=== PATIENT | female | born 1960 | race Caucasian/White ===

== ENCOUNTER 2021-10-23 10:40 | Inpatient (IN) | payer BC, OTHER, SELFPAY ==
[2021-10-23] VITALS (22 sets, daily range): BP systolic 130–154; BP diastolic 61–84; PULSE 74–86; RESP 18–222; TEMP 36.2–36.6; O2SAT 96–100; BMI 29.5
--- NOTE | ~2021-10-23 | XR_ITS ---
XR foot RT min 3V 10/26/2021 16:48 Indication: Medial foot pain Procedure: 4 views right foot Comparison: No prior studies for comparison. Findings: There is anatomic alignment. Normal mineralization. Lisfranc joint intact. No fracture, sub luxation or dislocation. There are small degenerative calcaneal enthesophytes. There is mild osteoart hritis of the midfoot. Impression: 1: Mild osteoarthritis of the midfoot. Reviewed, dictated and finalized at location A. Impression: 1: Mild osteoarthritis of the midfoot.
--- NOTE | ~2021-10-23 | MR_ITS ---
EXAMINATION: MR foot RT wo con DATE: 10/27/2021 12:35 INDICATION: Uncontrolled diabetes presenting with right foot pain TECHNIQUE: Magnetic resonance imaging (MRI) of the right fore/mid foot was performed without intraven ous contrast. Sequences included sagittal T1-weighted FSE, sagittal fluid sensitive FSE STIR, coronal PD-weighted FS FSE, coronal T1-weighted FSE, axial PD-weighted FS FSE, and axial PD-weighted FSE. COMPARISON: Radiographs dated 10/26/2021 FINDINGS: Bone alignment is normal. Juxta articular erosion with thin sclerotic margins at the medial head of t he first metatarsal with typical location and appearance for gout. Marrow signal is otherwise normal with no fracture, osteomyelitis or other pathologic marrow replacing process. Minimal to mild osteoar thritis at the tarsal metatarsal and first metatarsophalangeal joints. No joint effusions. Nonfocal s oft tissue edema throughout the mid and forefoot in the subcutaneous fat in the fascial planes surrou nding the musculature. No abscess or other abnormal loculated fluid collections. Intrinsic musculatur e of the foot is unremarkable. The visualized portion of the flexor and extensor tendons are normal. Lisfranc ligament complex along with the collateral ligament complex at the metatarsophalangeal and i nterphalangeal joints are normal. IMPRESSION: 1. Nonspecific soft tissue edema in the right mid and forefoot. No osteomyelitis or other acute osseo us abnormality. 2. Erosion with thin corticated margins at the medial head of the first metatarsal with classic locat ion appearance for gout. 3. Minimal to mild polyarticular osteoarthritis at the first metatarsophalangeal and multiple tarsal metatarsal joints. Reviewed, dictated and finalized at location B. IMPRESSION: 1. Nonspecific soft tissue edema in the right mid and forefoot. No osteomyeliti s or other acute osseous abnormality. 2. Erosion with thin corticated margins at the medial head of the first metatar ariela with classic location appearance for gout. 3. Minimal to mild polyarticular osteoarthritis at the first metatarsophalangea l and multiple tarsal metatarsal joints.
--- NOTE | ~2021-10-23 | NM_ITS ---
EXAMINATION: NM pulmonary perfusion DATE: 10/25/2021 13:10 INDICATION: Shortness of breath. TECHNIQUE: 5.02 mCi Tc-99m MAA was administered intravenously for perfusion images. Scintigraphic im ages of the chest were obtained. COMPARISON: Chest CT 10/24/2021, chest single view 10/23/2021 FINDINGS: Perfusion images show small defects in the lower lobes. There is a large defect in anterior segment l eft upper lobe. There is a large defect in superior segment left lower lobe. There is a moderate-size d defect in the posterobasal segment left lower lobe. IMPRESSION: 1. Pulmonary embolism present (high probability). Reviewed, dictated and finalized at location A.
--- NOTE | ~2021-10-23 | CT_ITS ---
EXAMINATION: CT brain wo con DATE: 10/23/2021 12:20 INDICATION: Dizziness TECHNIQUE: Computed tomography (CT) of the head was performed without intravenous contrast. The dose- length product was 605.33 mGy-cm. Automated exposure control and iterative reconstruction technique w ere employed. COMPARISON: None FINDINGS: Brain parenchymal volume is normal for age. There are scattered mild periventricular and malcolm bcortical white matter changes, most likely related to small vessel ischemic disease (microangiopathy ). No acute intracranial hemorrhage, mass or mass effect. No ventriculomegaly or midline shift. Basil ar cisterns are patent. There is mucosal thickening of the maxillary and ethmoid sinuses. Mastoids ar e pneumatized. IMPRESSION: 1. No acute intracranial abnormality. 2: Moderate sinus disease. Reviewed, dictated and finalized at location A.
--- NOTE | ~2021-10-23 | CT_ITS ---
EXAMINATION: CT abdomen pelvis wo con DATE: 10/23/2021 14:47 INDICATION: lower abd pain TECHNIQUE: Computed tomography (CT) of the abdomen and pelvis was performed without intravenous contr ast. Automated exposure control and iterative reconstruction technique were employed. The dose-length product was 417.78 mGy-cm. COMPARISON: None FINDINGS: Lower thorax: Unremarkable Liver: Normal. Biliary/Gallbladder: Cholelithiasis. No bile duct dilation. Pancreas: No mass or duct dilation. Spleen: Normal. Adrenals:No mass. Kidneys: No mass, stone, or hydronephrosis. Moderate bilateral perinephric stranding. GI tract: No small or large bowel dilation. Appendix not visualized. Mesentery/Peritoneum: No ascites, mass, or free air. Retroperitoneum: No mass. Pelvis: Pelvic organs are within normal limits. Soft Tissues: Soft tissues and body wall unremarkable. Bones: No acute osseous finding. IMPRESSION: No acute abdominopelvic process detected. Reviewed, dictated and finalized at location K.
--- NOTE | ~2021-10-23 | US_ITS ---
EXAMINATION: US venous doppler [facility] DATE: 10/26/2021 12:38 INDICATION: Bilateral pulmonary emboli TECHNIQUE: Grayscale ultrasound images without and with compression and Doppler ultrasound images of the bilateral lower extremity veins were obtained. COMPARISON: None. FINDINGS: The visualized portions of right common femoral vein, profunda (deep) femoral vein, femoral vein, pop liteal vein, posterior tibial veins, peroneal veins, gastrocnemius vein, lesser saphenous vein and gr eater saphenous vein outflow are patent. The visualized portions of left common femoral vein, profunda femoral vein, femoral vein, popliteal v ein, posterior tibial veins, peroneal veins, gastrocnemius vein, lesser saphenous vein and greater sa phenous vein outflow are patent. IMPRESSION: 1. No deep venous thrombosis in either lower limb. Reviewed, dictated and finalized at location B.
--- NOTE | ~2021-10-23 | XR_ITS ---
EXAMINATION: XR chest 1V portable DATE: 10/23/2021 12:32 INDICATION: Cough. Weakness. TECHNIQUE: A single frontal view of the chest was obtained. COMPARISON: None. FINDINGS: The chest demonstrates clear lungs without pneumonia, pleural effusion, or pneumothorax. Th e heart size is normal. IMPRESSION: 1. No acute cardiopulmonary disease. Reviewed, dictated and finalized at location A.
--- NOTE | ~2021-10-23 | CT_ITS ---
EXAMINATION: CT chest high resolution wo co DATE: 10/24/2021 14:41 INDICATION: Cough TECHNIQUE: Computed tomography (CT) of the chest, including high-resolution chest CT images was perfo rmed without intravenous contrast. Automated exposure control and iterative reconstruction technique were employed. The dose-length product was 165.78 mGy-cm. COMPARISON: None. FINDINGS: CHEST: Thoracic aorta: Mild calcifications, no dilation. Lung parenchyma and airways: Very subtle mosaic attenuation, otherwise clear. Thoracic inlet, axillae and chest wall: No thyroid or soft tissue mass. No axillary lymphadenopathy. Mediastinum: No mass or lymphadenopathy. Heart and pericardium: Normal heart size. No pericardial effusion. Coronary artery calcifications: Absent. Pleura: No effusion or mass. Thoracic bones: No acute osseous finding in the chest. IMPRESSION: Very mild/early mosaic attenuation, which can be seen with asthma, bronchiolitis obliterans, hypersen sitivity pneumonitis, and chronic thromboembolic disease. . Reviewed, dictated and finalized at location K. IMPRESSION: Very mild/early mosaic attenuation, which can be seen with asthma, bronchioliti s obliterans, hypersensitivity pneumonitis, and chronic thromboembolic disease. .
--- NOTE | 2021-10-23 10:58 | ECG_ITS ---
Measurements Intervals [place] Rate: 76 P: 50 W[place]: 143 QRS: 23 QRSD: 86 T: 50 QT: 384 QTc: 434 Interpretive Statements SINUS RHYTHM NORMAL ECG Electronically Signed On 10-23-2021 12:40:22 CDT by Derrick Bellamy D.O.
[2021-10-23 11:56] LABS: Basophils Absolute Auto 0.1 K/mm3 (0.0-0.1); Basophils Percent Auto 0.4 % (0.2-1.2); Eosinophils Percent Auto 0.1 % (0-4.4); Hematocrit 37.1 % (37.0-47.0); Hemoglobin 12.2 g/dL (12.0-15.0); Immature Granulocyte Absolute 0.05 K/mm3 (0.00-0.031); Immature Granulocyte Percent A 0.4 % (0-0.5); Lymphocytes Absolute Auto 0.74 K/mm3 (0.9-3.2); Lymphocytes Percent Auto 5.5 % (18.3-44.2); Mean Corpuscular HGB Conc 32.9 g/dl (32-36); Mean Corpuscular Hemoglobin 30.5 pg (26-34); Mean Corpuscular Volume 92.8 fl (80-100); Mean Platelet Volume 10.1 fl (7.4-10.4); Monocytes Absolute Auto 1.2 K/mm3 (0.1-0.6); Monocytes Percent Auto 8.7 % (2.6-8.5); Neutrophils Absolute Auto 11.5 K/mm3 (1.3-6.7); Neutrophils Percent Auto 84.9 % (45.5-73.1); Platelet Count Result 370 k/mm3 (150-375); Red Cell Distribution Width 12.7 % (11.5-14.5); White Blood Count 13.5 K/mm3 (4.5-10.0)
[2021-10-23] MEDS: SODIUM CHLORIDE 0.9% IV 1,000 ML 999 ML IV CONT ×2 (12:11→13:10)
[2021-10-23 12:38] LABS: Alanine Aminotransferase 48 U/L (6-35); Albumin Level 4.1 g/dL (3.5-5.1); Alkaline Phosphatase 234 U/L (38-126); Anion Gap 11 mmol/L (8-16); Aspartate Amino Transferase 56 U/L (14-36); Bilirubin,Total 0.6 mg/dL (0.2-1.3); Blood Urea Nitrogen 34 mg/dL (7-17); Calcium 8.9 mg/dL (8.4-10.2); Carbon Dioxide 25 mmol/L (22-30); Chloride 96 mmol/L (98-107); Estimated CRCL calculation 29 ml/min; Estimated Glomerular Filt Rate 31; Glucose 456 mg/dL (65-110); Potassium 4.5 mmol/L (3.4-5.0); Sodium 132 mmol/L (137-145)
[2021-10-23 13:33] LABS: Glucose Point of Care 367 mg/dl (65-105)
[2021-10-23 13:54] LABS: Appearance Urine Slightly Cloudy (Clear); Bilirubin Urine Negative (Negative); Blood Urine 1+ (Negative); Color Urine Yellow (Yellow); Glucose Urine UA 3+ mg/dL (Negative); Ketones Urine Negative (Negative); Leukocyte Esterase Ur 2+ LEU/UL (Negative); Nitrate Urine Positive (Negative); Protein Urine 2+ mg/dL (Negative); Urobilinogen Urine 0.2 mg/dL (<2.0); pH Urine 5.5 (5.0-9.0)
[2021-10-23 13:57] LABS: Bacteria Urine Trace /hpf; Mucus Urine Rare /lpf; Squamous Epithelial Cell Urine Occasional /hpf (Few); WBC Clumps Urine Present /HPF; WBC Urine >75 /hpf
[2021-10-23 14:00] LABS: Add Urine Microscopic? YES
--- NOTE | 2021-10-23 14:37 | PC.NURSE ---
blood glucose was 369 at 1436
[2021-10-23 14:39] LABS: Glucose Point of Care 369 mg/dl (65-105)
[2021-10-23 14:48] LABS: Lactic Acid Reflex 1.1 mmol/L (0.7-2.0)
--- NOTE | 2021-10-23 15:02 | ED.GENADULT ---
HPI - General Adult General Chief complaint: Weakness Stated complaint: weakness Time Seen by Provider: 10/23/21 12:01 Source: RN notes reviewed History of Present Illness HPI narrative: Patient presents emergency department from home for weakness. Patient states she has been having generalized weakness over the past 2 months states that she feels very fatigued and sleepy. She states that she has had no unilateral numbness or weakness she denies any vision changes she denies any difficulty speaking she denies any fevers or chills chest pain shortness of breath abdominal pain nausea vomiting or any other symptoms. Patient states she does have a history of diabetes mellitus and has an insulin pump but does not check her sugars regularly at home as her machine has not been working Related Data Allergies Allergy/AdvReac Type Severity Reaction Status Date / Time No Known Allergies Allergy Unverified 06/28/14 08:42 Review of Systems Review of Systems: Gen.: Denies fevers or chills Eyes: Denies eye pain or visual change ENT: Denies congestion Respiratory: Denies shortness of breath or cough CV: Denies chest pain or palpitations GI: Denies abdominal pain nausea, emesis or diarrhea Musculoskeletal: Denies back pain or muscle pain Neuro: Reports weakness Skin: Denies rash Endocrine: Reports diabetes mellitus Except as documented, all other systems reviewed and negative [facility] Past Medical History Medical History (Updated 10/23/21 @ 15:05 by Vernon Iyer DO) Diabetes mellitus Social History Social History (Updated 10/23/21 @ 15:03 by Vernon Iyer DO) Smoking status: Never smoker Exam Narrative: APPEARANCE: No acute distress, nontoxic, resting in bed HEENT: Normocephalic, atraumatic, OMM, EYES: PERRL, EOMI NECK: Supple, nontender, full range of motion without pain, no meningismus RESPIRATORY: No respiratory distress, clear to auscultation bilaterally with no rhonchi wheezing or rales CARDIOVASCULAR: RRR s murmur ABDOMINAL: Soft, nontender, nondistended MUSCULOSKELETAL: Moves all extremities. No clubbing, cyanosis or edema. NEURO: A and O ?3, following commands, speech normal, no facial droop, muscle strength 5 out of 5 bilateral upper and lower extremities SKIN:: Warm, dry. Normal Color PSYCHIATRIC: Normal affect/mood Course Course Emergency Course: Discussed with JENNIFER Orantes for Dr. Franco agrees with admission Discussed with patient and family results of workup and diagnosis. Discussed need for admission. Patient and family understand and agree to current treatment plan Vital Signs Vital signs: Vital Signs Temperature 97.1 F L 10/23/21 10:46 Pulse Rate 82 10/23/21 10:46 Respiratory Rate 20 10/23/21 10:46 Blood Pressure 130/61 10/23/21 10:46 Pulse Oximetry 97 10/23/21 10:46 Temperature 97.1 F L 10/23/21 10:46 Pulse Rate 84 10/23/21 14:32 Respiratory Rate 222 H 10/23/21 14:32 Blood Pressure 145/84 H 10/23/21 14:32 Pulse Oximetry 99 10/23/21 14:32 Medical Decision Making Vital Signs Vital Signs: Vital Signs Temperature 97.1 F L 10/23/21 10:46 Pulse Rate 82 10/23/21 10:46 Respiratory Rate 20 10/23/21 10:46 Blood Pressure 130/61 10/23/21 10:46 Pulse Oximetry 97 10/23/21 10:46 Temperature 97.1 F L 10/23/21 10:46 Pulse Rate 84 10/23/21 14:32 Respiratory Rate 222 H 10/23/21 14:32 Blood Pressure 145/84 H 10/23/21 14:32 Pulse Oximetry 99 10/23/21 14:32 Lab Data Result diagrams: 10/23/21 11:49 10/23/21 11:49 Labs: Lab Results 10/23/21 10/23/21 10/23/21 Range/Units 11:49 11:49 13:30 WBC 13.5 H (4.5-10.0) K/mm3 RBC 4.00 L (4.2-5.4) M/mm3 Hgb 12.2 (12.0-15.0) g/dL Hct 37.1 (37.0-47.0) % MCV 92.8 (80-100) fl MCH 30.5 (26-34) pg MCHC 32.9 (32-36) g/dl RDW 12.7 (11.5-14.5) % Plt Count 370 (150-375) k/mm3 MPV 10.1 (7.4-10.4) fl Immature Gran % (Au
[2021-10-23 16:55] LABS: Glucose Point of Care 236 mg/dl (65-105)
--- NOTE | 2021-10-23 17:16 | ADMGEN ---
This patient, Bebe Belle, was admitted to Medical Room 342-01. Patient/family oriented to hospital policies and general routines including ID bracelet, bed and alarms, visiting hours, pain management, procedures, bathroom and other care routines, personal items, smoking policy, room service/diet, and visiting hours. Information on how to activate the Rapid Response Team has been discussed. Patient/Family are encouraged to report perceived risks to care and to ask questions if they do not understand what they are told or what they should do.
[2021-10-23] MEDS: SODIUM CHLORIDE 0.9% IV 1,000 ML 125 ML IV CONT (18:27)
--- NOTE | 2021-10-23 19:30 | PM.IMHP ---
H&P: HPI History of Present Illness Date/Time: 10/23/21 19:30 Chief Complaint: Weakness. Narrative: This is a pleasant 61-year-old female with insulin-dependent diabetes, hypertension, dyslipidemia, and gout who presented to the emergency department from home for evaluation of weakness. She is typically pretty active and she is able to work a full-time job in addition to a part-time job as well as partake in golfing as often as possible. The last 2 months however she has become fatigued with everyday activities, is short of breath at times when she typically would not be short of breath, and she has been sleeping more than normal. She was seen by her primary physician at the [facility] about a month ago at which time she had lab work done. She was told that she had microscopic protein in her urine and she had a renal ultrasound as well however she has not her and anything regarding that. Vital signs on arrival today were stable. Pertinent labs include a white blood cell count of 132, chloride 96, BUN 34, creatinine 1.70, glucose 456, AST 56, ALT 48, alkaline phosphatase 234. Urinalysis was also abnormal and concerning for UTI. With further questioning she does admit that her appetite has not been great and that she definitely does not drink enough water. She admits that her diabetes is not well controlled and that she frequently forgets to give herself mealtime insulin, recent hemoglobin A1c was around 10%. She believes she has some component of chronic kidney disease however does not know her baseline creatinine or GFR. She has noticed foamy urine with dysuria several days ago but that has since improved. She has frequent headaches upon waking and she is somnolent throughout the day, easily falling asleep when sitting down. She denies fever, chills, sweats, paroxysmal nocturnal dyspnea, heavy snoring, exertional chest pain, nausea, vomiting, diarrhea, focal weakness, paresthesias, dysarthria, dysphagia, and recent cold and flu symptoms Review of Systems Review of Systems: Twelve systems were reviewed. No cold or flu symptoms. No sick contacts. No blurry vision, polydipsia, or polyuria. She does have diabetic retinopathy but is not required any intervention. Endorses neuropathy in her feet and on occasion hands. No open wounds. Except as documented, all other systems were reviewed and are negative. [facility] Past Medical History Medical History (Updated 10/24/21 @ 00:09 by Rolanda Tamez PA-C) Chronic kidney disease Dyslipidemia Gastroesophageal reflux disease Gout Hypertension Insulin dependent diabetes mellitus With retinopathy, nephropathy, and neuropathy. Surgical History Surgical History (Updated 10/24/21 @ 00:05 by Rolanda Tamez PA-C) No history of previous surgery Family History Family History (Updated 10/24/21 @ 00:05 by Rolanda Tamez PA-C) Mother Breast cancer Alzheimer's disease Father Diabetes mellitus Grandparent Acute myocardial infarction Social History Social History (Updated 10/24/21 @ 00:06 by Rolanda Tamez PA-C) Social History: Surrogate decision maker: Jennifer Zepeda, significant other. Code status: Full code. Smoking status: Never smoker Alcohol intake: current Drinks per week: 1 (Sparingly) Substance use: never Living arrangements: with family Spiritual care concerns: Yes Meds Home Medications and Allergies Home Medications Medication Instructions Recorded Confirmed Type ascorbic acid (vitamin C) 1,000 mg PO DAILY 10/23/21 10/23/21 History aspirin [Baby Aspirin] 81 mg PO DAILY 10/23/21 10/23/21 History carvedilol 25 mg PO BID 10/23/21 10/23/21 History cholecalciferol (vitamin D3) 50 mcg PO DAILY 10/23/21 10/23/21 History cranberry extract 500 mg PO DAILY 10/23/21 10/23/21 History ezetimibe 5 mg PO DAILY 10/23/21 10/23/21 History losartan-hydrochlorothiazide 25 - 100 mg PO DAILY 10/23/21 10/23/21 History mecobalamin (vitamin B12) 2,500 mcg PO DAILY 10/23/21 10/23/21 H
[2021-10-23 19:57] LABS: Glucose Point of Care 237 mg/dl (65-105)
[2021-10-23] MEDS: ACETAMINOPHEN 325 MG TABLET 650 MG PO (21:51)
--- NOTE | 2021-10-24 00:12 | ECHO_ITS ---
Patient Info Name: Bebe Belle Age: 61 years : 1960 Gender: Female Ht: 61 in Wt: 156 lbs BSA: 1.77 m2 HR: 77 bpm BP: 129 / 53 mmHg Heart Rhythm: Sinus Rhythm Technical Quality: Fair Exam Date: 10/24/2021 4:46 PM Exam Location: [facility] Patient Status: Outpatient Admit Date: 10/23/2021 Staff Ordering Physician: Rolanda Tamez PA-C Perfect [employer] Machine Operator: Luz Alejandra RDCS Attending Provider: Duke Franco MD Referring Physician: Joi HUTCHINSON; Exam Type: CA echo doppler color flow Study Info Indications - Decreased exercise tolerance, HTN, DM Complete two-dimensional, color flow and Doppler transthoracic echocardiogram is performed. Summary 1. Complete two-dimensional, color flow and Doppler transthoracic echocardiogram is performed. 2. Left ventricular chamber dimension is normal. 3. Left ventricular systolic function is normal, estimated at 60-65%. 4. There is mildly increased left ventricular wall thickness. 5. The left ventricular diastolic function is grade I diastolic dysfunction. 6. There is mild mitral valve regurgitation. 7. There is mild tricuspid valve regurgitation. 8. Moderate pulmonary hypertension, estimated pulmonary arterial systolic pressure is 46 mmHg. 9. There is mild pulmonic regurgitation. Left Ventricle Left ventricular chamber dimension is normal. Left ventricular systolic function is normal, estimated at 60-65%. There is mildly increased left ventricular wall thickness. The left ventricular diastolic function is grade I diastolic dysfunction. Right Ventricle Right ventricular chamber dimension is normal. Right ventricular systolic function is normal. Left Atria Left atrial chamber dimension is normal. Right Atria Right atrial chamber dimension is normal. Atrial Septum Intact interatrial septum visualized by color flow imaging. Aortic Valve The aortic valve is trileaflet. There is no aortic valve sclerosis. There is no aortic valve stenosis. There is trace aortic valve regurgitation. Pulmonic Valve The pulmonic valve is normal. There is no pulmonic valve stenosis. There is mild pulmonic regurgitation. Mitral Valve The mitral valve has thickened leaflets. There is no mitral valve stenosis. There is mild mitral valve regurgitation. Tricuspid Valve The tricuspid valve leaflets are normal. There is no significant tricuspid valve stenosis. There is mild tricuspid valve regurgitation. Moderate pulmonary hypertension, estimated pulmonary arterial systolic pressure is 46 mmHg. Pericardium/Pleural The pericardium appears normal. There is no pericardial effusion. Inferior Vena Cava Normal inferior vena cava with <50% collapse upon inspiration consistent with elevated right atrial pressure, 10 mmHg. Aorta The aortic root size at the sinus of Valsalva is normal. The prox ascending aorta size is normal. Left Ventricular Outflow Tract Name Value Normal LVOT 2D LVOT Diameter 2.0 cm LVOT Doppler LVOT Peak Gradient 3 mmHg LVOT Mean Gradient 2 mmHg
[2021-10-24 01:17] VITALS: PULSE 86
[2021-10-24] MEDS: carvediloL 25 MG TABLET PO ×3 (01:17→21:14)
[2021-10-24] MEDS: SODIUM CHLORIDE 0.9% IV 1,000 ML 75 ML IV CONT (01:20)
[2021-10-24 06:00] VITALS: BP 129/53; PULSE 77; RESP 18; TEMP 36.6; O2SAT 99
[2021-10-24 06:39] LABS: Alanine Aminotransferase 44 U/L (6-35); Albumin Level 3.2 g/dL (3.5-5.1); Alkaline Phosphatase 189 U/L (38-126); Anion Gap 4 mmol/L (8-16); Aspartate Amino Transferase 48 U/L (14-36); Bilirubin,Total 0.3 mg/dL (0.2-1.3); Blood Urea Nitrogen 22 mg/dL (7-17); Calcium 7.9 mg/dL (8.4-10.2); Carbon Dioxide 25 mmol/L (22-30); Chloride 108 mmol/L (98-107); Estimated CRCL calculation 49 ml/min; Estimated Glomerular Filt Rate 57; Glucose 201 mg/dL (65-110); Potassium 3.9 mmol/L (3.4-5.0); Sodium 137 mmol/L (137-145)
[2021-10-24 06:41] LABS: Basophils Percent Auto 0.4 % (0.2-1.2); Eosinophils Absolute Auto 0.1 K/mm3 (0-0.3); Eosinophils Percent Auto 1.1 % (0-4.4); Hematocrit 31.2 % (37.0-47.0); Hemoglobin 10.1 g/dL (12.0-15.0); Immature Granulocyte Absolute 0.05 K/mm3 (0.00-0.031); Immature Granulocyte Percent A 0.5 % (0-0.5); Lymphocytes Absolute Auto 0.93 K/mm3 (0.9-3.2); Lymphocytes Percent Auto 8.9 % (18.3-44.2); Mean Corpuscular HGB Conc 32.4 g/dl (32-36); Mean Corpuscular Hemoglobin 30.1 pg (26-34); Mean Corpuscular Volume 93.1 fl (80-100); Mean Platelet Volume 10.3 fl (7.4-10.4); Monocytes Absolute Auto 1.1 K/mm3 (0.1-0.6); Monocytes Percent Auto 10.4 % (2.6-8.5); Neutrophils Absolute Auto 8.2 K/mm3 (1.3-6.7); Neutrophils Percent Auto 78.7 % (45.5-73.1); Platelet Count Result 311 k/mm3 (150-375); Red Blood Count 3.35 M/mm3 (4.2-5.4); Red Cell Distribution Width 12.9 % (11.5-14.5); White Blood Count 10.4 K/mm3 (4.5-10.0)
[2021-10-24 07:40] LABS: Glucose Point of Care 191 mg/dl (65-105)
[2021-10-24] MEDS: LOSARTAN POTASSIUM 100 MG TABLET PO (08:01)
[2021-10-24] MEDS: CHOLECALCIFEROL 1,000 UNITS TABLET 2000 UNITS PO (08:01)
[2021-10-24] MEDS: ASPIRIN 81 MG CHEWABLE TABLET PO (08:02)
[2021-10-24] MEDS: ASCORBIC ACID 500 MG TABLET 1000 MG PO (08:02)
[2021-10-24] MEDS: EZETIMIBE 5 MG TABLET PO (08:02)
[2021-10-24] MEDS: hydroCHLOROthiazide 25 MG TABLET PO (08:02)
--- NOTE | 2021-10-24 10:13 | PM.IMPN ---
Progress Note: A&P Assessment and Plan (1) Insulin dependent diabetes mellitus: Status: Acute Assessment and Plan: Patient may continue to use her insulin pump basal rate. Initiate sliding scale insulin, Accu-Cheks, and hypoglycemic protocol. (2) Hyperglycemia: Code(s): R73.9 - Hyperglycemia, unspecified Status: Acute Assessment and Plan: Diabetes is poorly controlled with a recent hemoglobin A1c of around 10%. Discussed the importance of getting her diabetes under control, met with hospice educator within the last 6 months. Glucose has improved with hydration and rapid acting insulin. (3) Chronic kidney disease: Code(s): N18.9 - Chronic kidney disease, unspecified Status: Acute Assessment and Plan: He patient reports some component of chronic kidney disease, unknown baseline. She does appear a bit dry and is being hydrated overnight. Records requested from the [facility] for review. (4) Urinary tract infection: Code(s): N39.0 - Urinary tract infection, site not specified Status: Acute Assessment and Plan: Continue ceftriaxone, pending urine culture. (5) Elevated LFTs: Code(s): R79.89 - Other specified abnormal findings of blood chemistry Status: Acute Assessment and Plan: Previously informed of mild LFT elevation. Abdominal exam is benign. No inpatient workup indicated. (6) Decreased exercise tolerance: Code(s): R68.89 - Other general symptoms and signs Status: Acute Assessment and Plan: Decreased exercise tolerance over the past couple of months. Given her diabetes and gender, will obtain echocardiogram to rule out wall motion abnormalities. Apnea link for screening tonight as well given daytime somnolence which revealed AHI of 3.6 which is within normal limit She might need stress test to further evaluate her exertion of dyspnea Also check TSH Discussed diabetes control (7) Hypertension: Code(s): I10 - Essential (primary) hypertension Status: Acute Assessment and Plan: Blood pressures were reviewed and they are reasonable. Continue antihypertensives and monitor daily. Subjective Date/time seen: 10/24/21 10:13 Interval history: HPI: This is a pleasant 61-year-old female with insulin-dependent diabetes, hypertension, dyslipidemia, and gout who presented to the emergency department from home for evaluation of weakness. She is typically pretty active and she is able to work a full-time job in addition to a part-time job as well as partake in golfing as often as possible. The last 2 months however she has become fatigued with everyday activities, is short of breath at times when she typically would not be short of breath, and she has been sleeping more than normal. She was seen by her primary physician at the [facility] about a month ago at which time she had lab work done. She was told that she had microscopic protein in her urine and she had a renal ultrasound as well however she has not her and anything regarding that. Vital signs on arrival today were stable. Pertinent labs include a white blood cell count of 132, chloride 96, BUN 34, creatinine 1.70, glucose 456, AST 56, ALT 48, alkaline phosphatase 234. Urinalysis was also abnormal and concerning for UTI. With further questioning she does admit that her appetite has not been great and that she definitely does not drink enough water. She admits that her diabetes is not well controlled and that she frequently forgets to give herself mealtime insulin, recent hemoglobin A1c was around 10%. She believes she has some component of chronic kidney disease however does not know her baseline creatinine or GFR. She has noticed foamy urine with dysuria several days ago but that has since improved. She has frequent headaches upon waking and she is somnolent throughout the day, easily falling asleep when sitting down. She denies fever, chills, sweats, paroxysmal noc
[2021-10-24 11:35] LABS: Glucose Point of Care 279 mg/dl (65-105)
[2021-10-24] MEDS: INSULIN ASPART (*BKC) 100 UNITS/ML SUB-Q (11:45)
[2021-10-24 11:47] VITALS: BMI 31.5
[2021-10-24 13:22] LABS: NT Pro B Type Natriuretic Pept 152 pg/mL (5-100)
--- NOTE | 2021-10-24 13:27 | PCNSR ---
On 10/24/21, the student, David Martinez, provided care and completed [facility] documentation on this patient. I have reviewed the student's documentation and agree with the findings.
[2021-10-24 14:00] VITALS: BP 169/77; PULSE 75; RESP 16; TEMP 37.2; O2SAT 99
[2021-10-24] MEDS: ALBUTEROL SULFATE (*SP) AEROSOL 1 PUFF 2 PUFF INHALATION ×2 (15:36→20:44)
[2021-10-24 15:47] VITALS: PULSE 75; O2SAT 99
[2021-10-24 15:59] LABS: SARS-CoV-2 RNA PCR Negative
[2021-10-24 16:38] LABS: Glucose Point of Care 200 mg/dl (65-105)
[2021-10-24 20:12] LABS: D Dimer 1.16 ug/mL (<0.48)
[2021-10-24 21:00] VITALS: BP 162/74; PULSE 83; RESP 18; TEMP 36.1; O2SAT 97
[2021-10-24 21:14] VITALS: PULSE 89
[2021-10-24 21:15] LABS: Glucose Point of Care 239 mg/dl (65-105)
[2021-10-25] VITALS (7 sets, daily range): BP systolic 160–194; BP diastolic 72–80; PULSE 70–77; RESP 16; TEMP 36.2–36.6; O2SAT 96–99
[2021-10-25] MEDS: ALBUTEROL SULFATE (*SP) AEROSOL 1 PUFF 2 PUFF INHALATION ×4 (02:49→19:50)
[2021-10-25 06:17] LABS: Basophils Absolute Auto 0.1 K/mm3 (0.0-0.1); Basophils Percent Auto 0.5 % (0.2-1.2); Eosinophils Absolute Auto 0.2 K/mm3 (0-0.3); Hemoglobin 10.4 g/dL (12.0-15.0); Immature Granulocyte Absolute 0.03 K/mm3 (0.00-0.031); Immature Granulocyte Percent A 0.3 % (0-0.5); Lymphocytes Absolute Auto 1.51 K/mm3 (0.9-3.2); Lymphocytes Percent Auto 16.4 % (18.3-44.2); Mean Corpuscular HGB Conc 32.5 g/dl (32-36); Mean Corpuscular Hemoglobin 30.1 pg (26-34); Mean Corpuscular Volume 92.5 fl (80-100); Mean Platelet Volume 10.3 fl (7.4-10.4); Monocytes Absolute Auto 0.9 K/mm3 (0.1-0.6); Monocytes Percent Auto 10.1 % (2.6-8.5); Neutrophils Absolute Auto 6.5 K/mm3 (1.3-6.7); Neutrophils Percent Auto 70.7 % (45.5-73.1); Platelet Count Result 361 k/mm3 (150-375); Red Blood Count 3.46 M/mm3 (4.2-5.4); Red Cell Distribution Width 12.9 % (11.5-14.5); White Blood Count 9.2 K/mm3 (4.5-10.0)
[2021-10-25 06:28] LABS: Alanine Aminotransferase 70 U/L (6-35); Albumin Level 3.3 g/dL (3.5-5.1); Alkaline Phosphatase 249 U/L (38-126); Anion Gap 5 mmol/L (8-16); Aspartate Amino Transferase 62 U/L (14-36); Bilirubin,Total 0.3 mg/dL (0.2-1.3); Blood Urea Nitrogen 19 mg/dL (7-17); CRP 6.2 mg/dL (<1.0); Calcium 8.6 mg/dL (8.4-10.2); Carbon Dioxide 29 mmol/L (22-30); Chloride 106 mmol/L (98-107); Estimated CRCL calculation 54 ml/min; Estimated Glomerular Filt Rate > 60; Glucose 95 mg/dL (65-110); Magnesium 1.8 mg/dL (1.6-2.3); Potassium 3.8 mmol/L (3.4-5.0); Sodium 140 mmol/L (137-145)
[2021-10-25 07:33] LABS: Glucose Point of Care 107 mg/dl (65-105)
[2021-10-25] MEDS: ASCORBIC ACID 500 MG TABLET 1000 MG PO (08:15)
[2021-10-25] MEDS: ACETAMINOPHEN 325 MG TABLET 650 MG PO (08:15)
[2021-10-25] MEDS: LOSARTAN POTASSIUM 100 MG TABLET PO (08:16)
[2021-10-25] MEDS: CHOLECALCIFEROL 1,000 UNITS TABLET 2000 UNITS PO (08:16)
[2021-10-25] MEDS: hydroCHLOROthiazide 25 MG TABLET PO (08:16)
[2021-10-25] MEDS: ASPIRIN 81 MG CHEWABLE TABLET PO (08:16)
[2021-10-25] MEDS: EZETIMIBE 5 MG TABLET PO (08:16)
[2021-10-25] MEDS: carvediloL 25 MG TABLET PO ×2 (08:16→20:44)
[2021-10-25 10:00] LABS: Glucose Point of Care 206 mg/dl (65-105)
[2021-10-25 11:19] LABS: Glucose Point of Care 181 mg/dl (65-105)
[2021-10-25] MEDS: cefTRIAXone 2 GM in SODIUM CHLORIDE 0.9% IV 100 ML 200 ML IVPB (13:18)
--- NOTE | 2021-10-25 13:47 | PM.CNCAR ---
Assessment and Plan Assessment and plan (1) Bacteremia: Code(s): R78.81 - Bacteremia Status: Acute Assessment and Plan: ? Etiology. It is reasonable to pursue a transesophageal echocardiogram. Unlikely source but will keep NPO after midnight for a transesophageal echocardiogram tomorrow. I did talk to her about the risks, benefits alternatives and she verbalized understanding and is agreeable (2) Urinary tract infection: Code(s): N39.0 - Urinary tract infection, site not specified Status: Acute Assessment and Plan: Currently on ceftriaxone (3) Decreased exercise tolerance: Code(s): R68.89 - Other general symptoms and signs Status: Acute Assessment and Plan: Possibly due to underlying infection but cannot completely exclude ischemia (4) Hypertension: Code(s): I10 - Essential (primary) hypertension Status: Acute Assessment and Plan: At reasonable control. Continue current meds (5) Insulin dependent diabetes mellitus: Status: Acute Assessment and Plan: Per hospitalist (6) Atypical chest pain: Code(s): R07.89 - Other chest pain Status: Acute Assessment and Plan: If she does not improve with antibiotics, it is reasonable to pursue a stress test on her. This could be performed as an outpatient as Lexiscan or an exercise perfusion study History of Present Illness History of Present Illness Consult date/time: 10/25/21 13:47 Requesting physician: Dr. Tellez Reason For Visit: UTI, Acute Renal Insufficiency, Hyperglycemia, Wea Narrative: Reason consultation: Bacteremia, evaluate for CHRISTEL History: Patient is 61-year-old female who came to hospital because of progressively worsening weakness. She has been progressively more weak, short of breath, tired for the past month to maybe 2 months. The symptoms worsened to the point that she came the hospital. She is found to have bacteremia with Klebsiella pneumonia as well as a UTI, species pending. Cardiology consultation was requested for evaluation of possible transesophageal echocardiogram. Transthoracic echocardiogram was unremarkable. Patient does describe a couple episodes of chest pain recently that were is short-lived. She has not had any exertional chest pain. She does have shortness breath with mild activity such as walking to and from her car. No syncope but she does have some dizziness upon standing. No paroxysmal nocturnal dyspnea orthopnea. Minor swelling is noted which is not particularly new or different. No palpitations. She has no trouble swallowing and no bleeding issues Review of Systems Review of Systems: All systems reviewed & are unremarkable except as noted in HPI and below Constitutional: Constitutional: Denies difficulty sleeping Eyes: Eyes: Denies blurry vision ENT: Reports Normal hearing present Cardiovascular: Cardiovascular: Denies chest pain, Denies diaphoresis and Reports pedal edema Respiratory: Respiratory: Denies chest congestion and Denies cough Gastrointestinal: Gastrointestinal: Denies abdominal pain Genitourinary: Genitourinary: Denies hematuria Musculoskeletal: Musculoskeletal: Denies back pain Integumentary/Breasts: Skin/Breast: Denies breast pain Neurologic: Denies Abnormal speech present Psychiatric: Psychiatric: Denies confusion Endocrine: Endocrine: Reports fatigue Hematologic/Lymphatic: Hematologic/Lymphatic: Denies easy bleeding Allergic/Immunologic: Allergic/Immunologic: Denies GI upset with certain foods PMFSH Past Medical History Medical History Chronic kidney disease Dyslipidemia Gastroesophageal reflux disease Gout Hypertension Insulin dependent diabetes mellitus With retinopathy, nephropathy, and neuropathy. Surgical History Surgical History No history of previous surgery
--- NOTE | 2021-10-25 14:37 | PM.IMPN ---
Progress Note: A&P Assessment and Plan (1) Decreased exercise tolerance: Code(s): R68.89 - Other general symptoms and signs Status: Acute Assessment and Plan: Decreased exercise tolerance over the past couple of months. Apnea link for screening tonight as well given daytime somnolence which revealed AHI of 3.6 which is within normal limit She might need stress test to further evaluate her exertion of dyspnea. TSH within range. transthoracic echo shows EF60-65% moderate pHTN and Grade I diastolic dysfunction. VQ scan shows high probability of bilateral PE. HRCT chest w/ mosaic pattern. -Started enoxaparin BID -Bilateral venous duplex of lower extremities -Will need hypercoagulability workup outpatient and workup for cancer outpatient (2) Sepsis: Code(s): A41.9 - Sepsis, unspecified organism Status: Acute Assessment and Plan: UCX & 1/2 BCX w/ klebsiella. UCX sensitive to current ceftriaxone. TTE w/ no vegetations but needs CHRISTEL. -Repeat BCX x 2 -Cardiology consult for bacteremia for CHRISTEL -Will repeat cultures with AM labs -Ceftriaxone dose changed to 2g IV q12h for now (3) Bacteremia: Code(s): R78.81 - Bacteremia Status: Acute Assessment and Plan: Plans as noted above. (4) Pulmonary embolism: Code(s): I26.99 - Other pulmonary embolism without acute cor pulmonale Status: Acute Assessment and Plan: Enoxaparin BID started -Bilateral LE venous duplex ordered -As this is unprovoked will need hypercoagulability workup and cancer workup outpatient (5) Insulin dependent diabetes mellitus: Status: Acute Assessment and Plan: Patient may continue to use her insulin pump basal rate. Initiate sliding scale insulin, Accu-Cheks, and hypoglycemic protocol. (6) Hyperglycemia: Code(s): R73.9 - Hyperglycemia, unspecified Status: Acute Assessment and Plan: Diabetes is poorly controlled with a recent hemoglobin A1c of around 10%. Discussed the importance of getting her diabetes under control, met with purchasing/receiving within the last 6 months. Glucose has improved with hydration and rapid acting insulin. (7) Chronic kidney disease: Code(s): N18.9 - Chronic kidney disease, unspecified Status: Acute Assessment and Plan: He patient reports some component of chronic kidney disease, unknown baseline. She does appear a bit dry and is being hydrated overnight. Records requested from the [facility] for review. (8) Urinary tract infection: Code(s): N39.0 - Urinary tract infection, site not specified Status: Acute Assessment and Plan: Klebsiella senstive to ceftriaxone. Continue ceftriaxone. (9) Elevated LFTs: Code(s): R79.89 - Other specified abnormal findings of blood chemistry Status: Acute Assessment and Plan: Previously informed of mild LFT elevation. Abdominal exam is benign. No inpatient workup indicated. (10) Hypertension: Code(s): I10 - Essential (primary) hypertension Status: Acute Assessment and Plan: Blood pressures were reviewed and they are reasonable. Continue antihypertensives and monitor daily. Subjective Date/time seen: Date of Service 10/25/21 1200 Patient says she feels much better. Family at bedside with questions. Denies chest pain and shortness of breath. 1/2 blood cultures with klebsiella Review of Systems Cardiovascular: Cardiovascular: Denies chest pain Respiratory: Respiratory: Denies dyspnea Exam Narrative: GENERAL: NAD, cooperative HEENT: Normocephalic, atraumatic, anicteric, nares clear, oropharynx moist and clear NECK: Supple CV: Normal S1, S2, RRR, No MRG RESP: CTAB, Normal work of breathing. Abdomen: Soft, non-tender, non-distended, +BS EXTREMITIES: Warm and well perfused, no clubbing, cyanosis, or edema SKIN: warm, dry and intact. NEURO: CN 2-12 grossly intact. Objective
[2021-10-25] MEDS: ENOXAPARIN 80 MG/0.8 ML SYRINGE 75 MG SUB-Q (15:11)
[2021-10-25 16:39] LABS: Glucose Point of Care 135 mg/dl (65-105)
[2021-10-25] MEDS: hydrALAZINE 5 MG TABLET PO ×2 (20:44→20:50)
[2021-10-25 20:51] LABS: Glucose Point of Care 222 mg/dl (65-105)
[2021-10-26] VITALS (23 sets, daily range): BP systolic 134–205; BP diastolic 60–101; PULSE 63–85; RESP 16–20; TEMP 35.7–37.4; O2SAT 95–100
[2021-10-26] MEDS: ENOXAPARIN 80 MG/0.8 ML SYRINGE 75 MG SUB-Q ×2 (00:45→13:51)
[2021-10-26] MEDS: cefTRIAXone 2 GM in SODIUM CHLORIDE 0.9% IV 100 ML 200 ML IVPB ×2 (01:02→12:46)
[2021-10-26 06:20] LABS: Basophils Absolute Auto 0.1 K/mm3 (0.0-0.1); Basophils Percent Auto 0.7 % (0.2-1.2); Eosinophils Absolute Auto 0.2 K/mm3 (0-0.3); Hematocrit 33.2 % (37.0-47.0); Hemoglobin 10.9 g/dL (12.0-15.0); Immature Granulocyte Absolute 0.03 K/mm3 (0.00-0.031); Immature Granulocyte Percent A 0.3 % (0-0.5); Lymphocytes Absolute Auto 1.46 K/mm3 (0.9-3.2); Lymphocytes Percent Auto 16.2 % (18.3-44.2); Mean Corpuscular HGB Conc 32.8 g/dl (32-36); Mean Corpuscular Volume 91.5 fl (80-100); Mean Platelet Volume 10.4 fl (7.4-10.4); Monocytes Absolute Auto 0.8 K/mm3 (0.1-0.6); Monocytes Percent Auto 8.3 % (2.6-8.5); Neutrophils Absolute Auto 6.6 K/mm3 (1.3-6.7); Neutrophils Percent Auto 72.5 % (45.5-73.1); Platelet Count Result 431 k/mm3 (150-375); Red Blood Count 3.63 M/mm3 (4.2-5.4); Red Cell Distribution Width 12.6 % (11.5-14.5)
[2021-10-26 06:37] LABS: Anion Gap 7 mmol/L (8-16); Blood Urea Nitrogen 23 mg/dL (7-17); Calcium 9.5 mg/dL (8.4-10.2); Carbon Dioxide 29 mmol/L (22-30); Chloride 103 mmol/L (98-107); Estimated CRCL calculation 45 ml/min; Estimated Glomerular Filt Rate 51; Glucose 153 mg/dL (65-110); Potassium 3.7 mmol/L (3.4-5.0); Sodium 139 mmol/L (137-145)
[2021-10-26 07:43] LABS: Glucose Point of Care 144 mg/dl (65-105)
--- NOTE | 2021-10-26 08:10 | PM.IMPN ---
Progress Note: A&P Assessment and Plan (1) Decreased exercise tolerance: Code(s): R68.89 - Other general symptoms and signs Status: Acute Assessment and Plan: Decreased exercise tolerance over the past couple of months. Apnea link for screening tonight as well given daytime somnolence which revealed AHI of 3.6 which is within normal limit She might need stress test to further evaluate her exertion of dyspnea. TSH within range. transthoracic echo shows EF60-65% moderate pHTN and Grade I diastolic dysfunction. VQ scan shows high probability of bilateral PE. HRCT chest w/ mosaic pattern. No DVT in bilateral LE on duplex. -Started enoxaparin BID -Will start apixaban tomorrow -Will need hypercoagulability workup outpatient and workup for cancer outpatient (2) Sepsis: Code(s): A41.9 - Sepsis, unspecified organism Status: Acute Assessment and Plan: UCX & 1/2 BCX w/ klebsiella almost pansensitive except ampicillin. UCX sensitive to current ceftriaxone. TTE w/ no vegetations but needs CHRISTEL. 10/25 BCX with no growth. 10/26 BCX pending. -Planned for CHRISTEL today -Ceftriaxone dose changed to 2g IV q12h for now (3) Bacteremia: Code(s): R78.81 - Bacteremia Status: Acute Assessment and Plan: Plans as noted above. (4) Pulmonary embolism: Code(s): I26.99 - Other pulmonary embolism without acute cor pulmonale Status: Acute Assessment and Plan: Enoxaparin BID started. Bilateral venous duplex with no DVT. -As this is unprovoked will need hypercoagulability workup and cancer workup outpatient (5) Insulin dependent diabetes mellitus: Status: Acute Assessment and Plan: Patient may continue to use her insulin pump basal rate. Initiate sliding scale insulin, Accu-Cheks, and hypoglycemic protocol. (6) Hyperglycemia: Code(s): R73.9 - Hyperglycemia, unspecified Status: Acute Assessment and Plan: Diabetes is poorly controlled with a recent hemoglobin A1c of around 10%. Discussed the importance of getting her diabetes under control, met with conservation educator within the last 6 months. Glucose has improved with hydration and rapid acting insulin. (7) Chronic kidney disease: Code(s): N18.9 - Chronic kidney disease, unspecified Status: Acute Assessment and Plan: [facility] creatinine 1.1-1.5. At baseline. -Avoid nephrotoxic agents -Renally dose medications (8) Urinary tract infection: Code(s): N39.0 - Urinary tract infection, site not specified Status: Acute Assessment and Plan: Klebsiella sensitive to ceftriaxone. Continue ceftriaxone and will be complete today. -If TTE negative will discontinue ceftriaxone (9) Elevated LFTs: Code(s): R79.89 - Other specified abnormal findings of blood chemistry Status: Acute Assessment and Plan: Previously informed of mild LFT elevation. Abdominal exam is benign. No inpatient workup indicated. (10) Hypertension: Code(s): I10 - Essential (primary) hypertension Status: Acute Assessment and Plan: Hypertensive. Started hydralazine 5 mg QID yesterday without significant improvement. -Already on carvedilol 25 mg BID, Losartan 100 mg daily and hydrochlorothiazide 25 mg daily -Add amlodipine 10 mg daily -Amlodipine 5 mg x 1 now Subjective Date/time seen: Date of Service 10/26/21 08:10 Patient denies chest pain, palpitations, shortness of breath. Says she has had right foot pain for over the last year. She has had a prior diagnosis of plantar fasciitis. She says she had the pain yesterday morning until it resolved by around 11am. Describes the pain as feeling like someone is taking a hammer to the side of her foot near the arch. Denies pain on the plantar surface of her foot. Denies any recent fall or trauma. Says the pain improved with Tylenol yesterday. Re
[2021-10-26] MEDS: hydroCHLOROthiazide 25 MG TABLET PO (08:42)
[2021-10-26] MEDS: LOSARTAN POTASSIUM 100 MG TABLET PO (08:42)
[2021-10-26] MEDS: carvediloL 25 MG TABLET PO ×2 (08:43→19:56)
[2021-10-26] MEDS: ALBUTEROL SULFATE (*SP) AEROSOL 1 PUFF 2 PUFF INHALATION ×3 (08:49→20:11)
[2021-10-26] MEDS: ACETAMINOPHEN 325 MG TABLET 650 MG PO ×2 (08:49→19:55)
[2021-10-26] MEDS: SODIUM CHLORIDE 0.9% IV 500 ML 30 ML IV CONT (09:55)
--- NOTE | 2021-10-26 10:12 | WPDMODSED ---
Moderate Sedation Note-Pt Data Patient Data Diagnosis: Bacteremia Present Complaint: Bacteremia Procedure to be performed/Plan: Multiplanar transesophageal echocardiography with pulse wave and color-flow Doppler Agitated saline study Moderate sedation Allergies Allergy/AdvReac Type Severity Reaction Status Date / Time No Known Allergies Allergy Unverified 06/28/14 08:42 Home Medications Medication Instructions Recorded Confirmed Type ascorbic acid (vitamin C) 1,000 mg PO DAILY 10/23/21 10/23/21 History aspirin 81 mg chewable tablet 81 mg PO DAILY 10/23/21 10/23/21 History carvedilol 25 mg tablet 25 mg PO BID 10/23/21 10/23/21 History cholecalciferol (vitamin D3) 50 50 mcg PO DAILY 10/23/21 10/23/21 History mcg (2,000 unit) tablet cranberry extract 500 mg PO DAILY 10/23/21 10/23/21 History ezetimibe 5 mg PO DAILY 10/23/21 10/23/21 History losartan-hydrochlorothiazide 25 - 100 mg PO DAILY 10/23/21 10/23/21 History mecobalamin (vitamin B12) 5,000 2,500 mcg PO DAILY 10/23/21 10/23/21 History mcg disintegrating tablet sour lopez extract 1,000 mg 1,200 mg PO DAILY 10/23/21 10/23/21 History capsule (Tart Lopez Extract) Current Medications: Active Medications Acetaminophen (Acetaminophen 325 Mg Tablet) 650 mg PO Q6H PRN PRN Reason: Pain, Headache Last Admin: 10/26/21 08:49 Dose: 650 mg Albuterol (Albuterol Sulfate (*Sp) Aerosol 1 Puff) 2 puff INHALATION Q6HRT [facility] Last Admin: 10/26/21 08:49 Dose: 2 puff Ascorbic Acid (Ascorbic Acid 500 Mg Tablet) 1,000 mg PO DAILY [facility] Stop: 11/23/21 08:59 Last Admin: 10/26/21 07:48 Dose: Not Given Aspirin (Aspirin 81 Mg Chewable Tablet) 81 mg PO DAILY [facility] Last Admin: 10/26/21 07:48 Dose: Not Given Carvedilol (Carvedilol 25 Mg Tablet) 25 mg PO Q12HR [facility] Last Admin: 10/26/21 08:43 Dose: 25 mg Cyanocobalamin (Cyanocobalamin 1,000 Mcg Tablet) 2,000 mcg PO QAM [facility] Last Admin: 10/26/21 08:35 Dose: Not Given Cyanocobalamin (Cyanocobalamin 500 Mcg Tablet) 500 mcg PO QAM [facility] Last Admin: 10/26/21 08:35 Dose: Not Given Dextrose (Dextrose 50% 25 Gm/50 Ml Syringe) 12.5 gm IV PUSH PRN PRN; Protocol PRN Reason: Hypoglycemia Ezetimibe (Ezetimibe 5 Mg Tablet) 5 mg PO DAILY [facility] Stop: 11/23/21 08:59 Last Admin: 10/26/21 07:48 Dose: Not Given Enoxaparin Sodium (Enoxaparin 80 Mg/0.8 Ml Syringe) 75 mg SUB-Q Q12H [facility] Last Admin: 10/26/21 00:45 Dose: 75 mg Glucagon (Glucagon For Inj 1 Mg Vial) 1 mg IM PRN PRN; Protocol PRN Reason: Hypoglycemia Glucose (Glucose Oral Gel 15 Gm Of Glucse In 37.5 Gm Tube) 15 gm PO PRN PRN; Protocol PRN Reason: Hypoglycemia Hydralazine HCl (Hydralazine 5 Mg Tablet) 5 mg PO QID [facility] Last Admin: 10/26/21 07:48 Dose: Not Given Hydrochlorothiazide (Hydrochlorothiazide 25 Mg Tablet) 25 mg PO DAILY [facility] Stop: 11/23/21 08:59 Last Admin: 10/26/21 08:42 Dose: 25 mg Dextrose (Dextrose 5% 1,000 Ml) 1,000 mls @ 100 mls/hr IVPB PRN PRN; Protocol PRN Reason: Hypoglycemia Ceftriaxone Sodium 2 gm/ (Sodium Chloride) 100 mls @ 200 mls/hr IVPB Q12H [facility] Last Infusion: 10/26/21 01:43 Dose: Infused Sodium Chloride (Normal Saline Iv) 500 mls @ 30 mls/hr IV CONT .[id number] [facility] Insulin Aspart (Insulin Aspart (*Bkc) 100 Units/Ml) 3 - 6 units SUB-Q TIDWM [facility]; Protocol Last Admin: 10/26/21 07:47 Dose: Not Given Losartan Potassium (Losartan Potassium 100 Mg Tablet) 100 mg PO DAILY [facility] Stop: 11/23/21 08:59 Last Admin: 10/26/21 08:42 Dose: 100 mg Non-Formulary Medication (Cranberry Extract) 500 mg PO DAILY [facility] Stop: 11/23/21 08:59 Non-Formulary Medication (Sour Lopez Extract [Tart Lopez Extract]) 1,200 mg PO DAILY [facility] Stop: 11/23/21 08:59 Perflutren Lipid Microsphere (Perflutren Lipid Microspheres 1.5 Ml Vial Diluted To 10 Ml Total Volume) 0 ml IV PUSH ONCE PRN; Protocol PRN Reason: adequate visualization Vitamin D (Cholecalciferol 1,000 Units Tablet) 2,000 units PO DAILY [facility] Last Admin: 10/26/21 07:48 Dose:
[2021-10-26] MEDS: METOPROLOL TARTRATE INJ 5 MG/5 ML VIAL (10:30)
--- NOTE | 2021-10-26 10:31 | WPDTEECHO ---
[facility] TransEsophageal Echocardiogram Date of procedure: 10/26/21 Procedure Type: 1. Multiplanar transesophageal echocardiography with pulse wave and color-flow Doppler 2. Agitated saline study 3. Moderate sedation Diagnosis: Bacteremia Indications: Bacteremia Image Quality: Good Findings: Procedure: After discussing the risks, benefits alternatives of procedure patient gave a via verbal and written informed consent. Risks discussed included esophageal rupture perforation, , need for emergent surgery, bleeding, pain, infection, sore throat. After establishing continuous operations management trainee, pulse oxygenation and serial blood pressure assessments, time-out was taken and procedure was started. Procedure start time 10:20 a.m. Procedure stop time 10:26 a.m. Patient was monitored medications were provided by Pedrito Denise RN Complications: None Blood loss: None Sedation: 3 mg of Versed and 50 mcg of fentanyl given in divided dosages as well as Hurricaine spray to the hypopharynx x2 for topical anesthetic. Patient did become hypertensive and 5 mg of IV metoprolol were also given Findings: Normal left ventricular size and function ejection fraction of 65%. Normal right ventricular size and function. Tricuspid valve is normal without evidence of mass or thrombus or vegetation. Mild tricuspid regurgitation. Mitral valve was also normal with mild mitral regurgitation. Aortic valve is trileaflet and normal with trivial aortic insufficiency. Pulmonic valve is grossly normal. No significant pulmonic insufficiency. Atrial septum is intact with out agitated saline or color flow evidence of shunting. Left atrial appendage is normal without mass or thrombus. Pulse wave velocities are 70 centimeters/second. Aortic root is normal in size measuring 2.9 cm and there is minimal arthrosclerotic disease seen within the aorta itself. No pericardial effusion. Conclusions: 1. Normal left ventricular size and function with ejection fraction 65% 2. No evidence of bacterial endocarditis 3. Mild mitral regurgitation 4. Intact atrial septum with negative agitated saline study 5. Moderate sedation
[2021-10-26 12:45] LABS: Glucose Point of Care 76 mg/dl (65-105)
[2021-10-26] MEDS: hydrALAZINE 5 MG TABLET PO ×3 (12:46→19:56)
[2021-10-26 16:32] LABS: Glucose Point of Care 131 mg/dl (65-105)
[2021-10-26 19:28] LABS: Glucose Point of Care 94 mg/dl (65-105)
[2021-10-26] MEDS: amLODIPine BESYLATE 5 MG TABLET PO (21:53)
[2021-10-26] MEDS: DICLOFENAC SODIUM 1% 100 GM GEL (*BKC) 1 APPLIC TOPICAL (21:54)
[2021-10-26] MEDS: APIXABAN 5 MG TABLET 10 MG PO (21:54)
[2021-10-27] VITALS (10 sets, daily range): BP systolic 141–152; BP diastolic 62–78; PULSE 72–78; RESP 16–20; TEMP 35.8–36.4; O2SAT 96–97
[2021-10-27] MEDS: ACETAMINOPHEN 325 MG TABLET 650 MG PO ×2 (01:29→09:23)
[2021-10-27] MEDS: ALBUTEROL SULFATE (*SP) AEROSOL 1 PUFF 2 PUFF INHALATION ×3 (02:20→19:32)
[2021-10-27] MEDS: SODIUM CHLORIDE 0.9% IV 500 ML 30 ML IV CONT (05:17)
[2021-10-27 07:09] LABS: Hematocrit 32.4 % (37.0-47.0); Hemoglobin 10.4 g/dL (12.0-15.0)
[2021-10-27 07:22] LABS: Glucose Point of Care 134 mg/dl (65-105)
[2021-10-27 07:34] LABS: Anion Gap 7 mmol/L (8-16); Blood Urea Nitrogen 22 mg/dL (7-17); Calcium 8.3 mg/dL (8.4-10.2); Carbon Dioxide 28 mmol/L (22-30); Chloride 102 mmol/L (98-107); Estimated CRCL calculation 50 ml/min; Estimated Glomerular Filt Rate > 60; Glucose 163 mg/dL (65-110); Sodium 137 mmol/L (137-145)
[2021-10-27] MEDS: cefTRIAXone 2 GM in SODIUM CHLORIDE 0.9% IV 100 ML 200 ML IVPB (09:10)
[2021-10-27] MEDS: APIXABAN 5 MG TABLET 10 MG PO ×2 (09:11→20:25)
[2021-10-27] MEDS: ASCORBIC ACID 500 MG TABLET 1000 MG PO (09:11)
[2021-10-27] MEDS: amLODIPine BESYLATE 5 MG TABLET 10 MG PO (09:11)
[2021-10-27] MEDS: CYANOCOBALAMIN 500 MCG TABLET PO (09:12)
[2021-10-27] MEDS: ASPIRIN 81 MG CHEWABLE TABLET PO (09:12)
[2021-10-27] MEDS: carvediloL 25 MG TABLET PO ×2 (09:15→20:24)
[2021-10-27] MEDS: CHOLECALCIFEROL 1,000 UNITS TABLET 2000 UNITS PO (09:18)
[2021-10-27] MEDS: LOSARTAN POTASSIUM 100 MG TABLET PO (09:18)
[2021-10-27] MEDS: EZETIMIBE 5 MG TABLET PO (09:18)
[2021-10-27] MEDS: CYANOCOBALAMIN 1,000 MCG TABLET 2000 MCG PO (09:18)
[2021-10-27] MEDS: hydroCHLOROthiazide 25 MG TABLET PO (09:18)
[2021-10-27] MEDS: DICLOFENAC SODIUM 1% 100 GM GEL (*BKC) 1 APPLIC TOPICAL ×4 (09:20→20:26)
[2021-10-27 11:50] LABS: Glucose Point of Care 104 mg/dl (65-105)
[2021-10-27 12:36] LABS: CRP 4.5 mg/dL (<1.0)
[2021-10-27 12:57] LABS: Erythrocyte Sedimentation Rate 107 mm/hr (0-20)
--- NOTE | 2021-10-27 13:58 | PM.DS ---
DS: Admitting Diagnosis Discharge Date 10/27/21 Admitting Diagnosis Weakness, Urinary Tract Infection DS: Discharge Diagnosis Discharge Diagnosis (1) Decreased exercise tolerance: Code(s): R68.89 - Other general symptoms and signs Status: Acute Assessment and Plan: Decreased exercise tolerance over the past couple of months. Apnea link for screening tonight as well given daytime somnolence which revealed AHI of 3.6 which is within normal limit She might need stress test to further evaluate her exertion of dyspnea. TSH within range. transthoracic echo shows EF60-65% moderate pHTN and Grade I diastolic dysfunction. VQ scan shows high probability of bilateral PE. HRCT chest w/ mosaic pattern. No DVT in bilateral LE on duplex. -Started apixaban today -Will need hypercoagulability workup outpatient and workup for cancer outpatient (2) Sepsis: Code(s): A41.9 - Sepsis, unspecified organism Status: Acute Assessment and Plan: UCX & 1/2 BCX w/ klebsiella almost pansensitive except ampicillin. UCX sensitive to current ceftriaxone. 10/25 BCX with no growth. 10/26 BCX with no growth. CHRSITEL had no vegetations. -Will discharge with Ceftriaxone 2 g IV daily for a total of 7 days duration of treatment with end date of 11/01/21 -PICC line ordered to be placed -Will need follow up with PCP next week (3) Bacteremia: Code(s): R78.81 - Bacteremia Status: Acute Assessment and Plan: TTE w/ no indication of endocarditis. (4) Pulmonary embolism: Code(s): I26.99 - Other pulmonary embolism without acute cor pulmonale Status: Acute Assessment and Plan: Bilateral venous duplex with no DVT. -Apixaban started today and approved by insurance -As this is unprovoked will need hypercoagulability workup and cancer workup outpatient (5) Insulin dependent diabetes mellitus: Status: Acute Assessment and Plan: Patient may continue to use her insulin pump basal rate. Initiate sliding scale insulin, Accu-Cheks, and hypoglycemic protocol. (6) Hyperglycemia: Code(s): R73.9 - Hyperglycemia, unspecified Status: Acute Assessment and Plan: Diabetes is poorly controlled with a recent hemoglobin A1c of around 10%. Discussed the importance of getting her diabetes under control, met with public health educator within the last 6 months. Glucose has improved with hydration and rapid acting insulin. (7) Chronic kidney disease: Code(s): N18.9 - Chronic kidney disease, unspecified Status: Acute Assessment and Plan: [facility], baseline creatinine 1.1-1.5. At baseline. -Avoid nephrotoxic agents -Renally dose medications (8) Urinary tract infection: Code(s): N39.0 - Urinary tract infection, site not specified Status: Acute Assessment and Plan: Klebsiella sensitive to ceftriaxone. Continue ceftriaxone and will be complete today. -If TTE negative will discontinue ceftriaxone (9) Elevated LFTs: Code(s): R79.89 - Other specified abnormal findings of blood chemistry Status: Acute Assessment and Plan: Previously informed of mild LFT elevation. Abdominal exam is benign. No inpatient workup indicated. (10) Hypertension: Code(s): I10 - Essential (primary) hypertension Status: Acute Assessment and Plan: Hypertensive. Started hydralazine 5 mg QID yesterday without significant improvement. -Already on carvedilol 25 mg BID, Losartan 100 mg daily and hydrochlorothiazide 25 mg daily -Add amlodipine 10 mg daily -Amlodipine 5 mg x 1 now DS: Summary Time Spent with Patient Time attestation: Total time spent providing and/or coordinating discharge services: Exam Narrative: GENERAL: NAD, cooperative HEENT: Normocephalic, atraumatic, anicteric, nares clear, oropharynx moist and clear NECK: Supple CV: Normal S1, S2, RRR, No MRG RESP: CTAB, No
[2021-10-27] MEDS: LIDOCAINE HCL 1% LOCAL INJ 2 ML AMPUL 5 ML INFILTRATE (14:36)
--- NOTE | 2021-10-27 15:23 | PM.IMPN ---
Progress Note: A&P Assessment and Plan (1) Decreased exercise tolerance: Code(s): R68.89 - Other general symptoms and signs Status: Acute Assessment and Plan: Decreased exercise tolerance over the past couple of months. Apnea link for screening tonight as well given daytime somnolence which revealed AHI of 3.6 which is within normal limit She might need stress test to further evaluate her exertion of dyspnea. TSH within range. transthoracic echo shows EF60-65% moderate pHTN and Grade I diastolic dysfunction. VQ scan shows high probability of bilateral PE. HRCT chest w/ mosaic pattern. No DVT in bilateral LE on duplex. -Apixaban started today -Will need hypercoagulability workup outpatient and workup for cancer outpatient (2) Sepsis: Code(s): A41.9 - Sepsis, unspecified organism Status: Acute Assessment and Plan: UCX & 1/2 BCX w/ klebsiella almost pansensitive except ampicillin. UCX sensitive to current ceftriaxone. 10/25 BCX with no growth. 10/26 BCX with no growth and TTE with no sign of valve vegetations. -Ceftriaxone dose changed to 2g IV daily through 11/01/21 (3) Bacteremia: Code(s): R78.81 - Bacteremia Status: Acute Assessment and Plan: TTE negative. Will continue treatment with ceftriaxone 2g IV daily as per case mangement, insurance approval will take a minimum of 72 hours, so the patient must remain inpatient to get IV ceftriaxone. (4) Pulmonary embolism: Code(s): I26.99 - Other pulmonary embolism without acute cor pulmonale Status: Acute Assessment and Plan: Bilateral venous duplex with no DVT. -Apixaban -As this is unprovoked will need hypercoagulability workup and cancer workup outpatient. (5) Insulin dependent diabetes mellitus: Status: Acute Assessment and Plan: Patient may continue to use her insulin pump basal rate. Initiate sliding scale insulin, Accu-Cheks, and hypoglycemic protocol. (6) Hyperglycemia: Code(s): R73.9 - Hyperglycemia, unspecified Status: Acute Assessment and Plan: Diabetes is poorly controlled with a recent hemoglobin A1c of around 10%. Discussed the importance of getting her diabetes under control, met with hospice educator within the last 6 months. Glucose has improved with hydration and rapid acting insulin. (7) Chronic kidney disease: Code(s): N18.9 - Chronic kidney disease, unspecified Status: Acute Assessment and Plan: [facility] creatinine 1.1-1.5. At baseline. -Avoid nephrotoxic agents -Renally dose medications (8) Urinary tract infection: Code(s): N39.0 - Urinary tract infection, site not specified Status: Acute Assessment and Plan: Klebsiella sensitive to ceftriaxone. Continue ceftriaxone and will be complete today. -Urinary tract infection treatment has been completed. (9) Elevated LFTs: Code(s): R79.89 - Other specified abnormal findings of blood chemistry Status: Acute Assessment and Plan: Previously informed of mild LFT elevation. Abdominal exam is benign. No inpatient workup indicated. (10) Hypertension: Code(s): I10 - Essential (primary) hypertension Status: Acute Assessment and Plan: Hypertensive. Started hydralazine 5 mg QID yesterday without significant improvement. -Already on carvedilol 25 mg BID, Losartan 100 mg daily and hydrochlorothiazide 25 mg daily -Continue amlodipine 10 mg daily Subjective Date/time seen: 10/27/21 15:23 Patient says her foot pain has moved to the top of her foot and that the foot is now red and warm. She says she cannot even walk because the pain is so excruciating. Review of Systems Musculoskeletal: Musculoskeletal: Denies arthralgias, Denies joint swelling and Denies stiffness Exam Narrative: GENERAL: NAD, cooperative HEENT: Normocephalic, atraumatic, anicteric, nares c
[2021-10-27] MEDS: COLCHICINE 0.6 MG TABLET 1.2 MG PO (15:36)
[2021-10-27 16:29] LABS: Glucose Point of Care 264 mg/dl (65-105)
[2021-10-27] MEDS: COLCHICINE 0.6 MG TABLET PO (17:15)
[2021-10-27 20:10] LABS: Glucose Point of Care 269 mg/dl (65-105)
[2021-10-27] MEDS: SALINE LOCK FLUSH 10 ML IV PUSH (20:26)
[2021-10-28] VITALS (9 sets, daily range): BP systolic 130–158; BP diastolic 61–77; PULSE 70–82; RESP 16–18; TEMP 36.3–36.8; O2SAT 97–98
[2021-10-28] MEDS: ALBUTEROL SULFATE (*SP) AEROSOL 1 PUFF 2 PUFF INHALATION ×4 (02:55→19:21)
[2021-10-28] MEDS: SALINE LOCK FLUSH 10 ML IV PUSH ×3 (05:46→20:38)
[2021-10-28 07:49] LABS: Glucose Point of Care 142 mg/dl (65-105)
[2021-10-28] MEDS: cefTRIAXone 2 GM in SODIUM CHLORIDE 0.9% IV 100 ML 200 ML IVPB (08:33)
[2021-10-28] MEDS: amLODIPine BESYLATE 5 MG TABLET 10 MG PO (08:36)
[2021-10-28] MEDS: APIXABAN 5 MG TABLET 10 MG PO ×2 (08:36→20:38)
[2021-10-28] MEDS: ASPIRIN 81 MG CHEWABLE TABLET PO (08:36)
[2021-10-28] MEDS: ASCORBIC ACID 500 MG TABLET 1000 MG PO (08:37)
[2021-10-28] MEDS: CHOLECALCIFEROL 1,000 UNITS TABLET 2000 UNITS PO (08:37)
[2021-10-28] MEDS: hydroCHLOROthiazide 25 MG TABLET PO (08:38)
[2021-10-28] MEDS: CYANOCOBALAMIN 500 MCG TABLET PO (08:38)
[2021-10-28] MEDS: CYANOCOBALAMIN 1,000 MCG TABLET 2000 MCG PO (08:38)
[2021-10-28] MEDS: LOSARTAN POTASSIUM 100 MG TABLET PO (08:38)
[2021-10-28] MEDS: carvediloL 25 MG TABLET PO ×2 (08:39→20:38)
[2021-10-28] MEDS: EZETIMIBE 5 MG TABLET PO (08:39)
[2021-10-28] MEDS: DICLOFENAC SODIUM 1% 100 GM GEL (*BKC) 1 APPLIC TOPICAL ×4 (08:41→20:39)
[2021-10-28 12:08] LABS: Glucose Point of Care 210 mg/dl (65-105)
--- NOTE | 2021-10-28 15:58 | PM.IMPN ---
Progress Note: A&P Assessment and Plan (1) Decreased exercise tolerance: Code(s): R68.89 - Other general symptoms and signs Status: Acute Assessment and Plan: Decreased exercise tolerance over the past couple of months. Apnea link for screening tonight as well given daytime somnolence which revealed AHI of 3.6 which is within normal limit She might need stress test to further evaluate her exertion of dyspnea. TSH within range. transthoracic echo shows EF60-65% moderate pHTN and Grade I diastolic dysfunction. VQ scan shows high probability of bilateral PE. HRCT chest w/ mosaic pattern. No DVT in bilateral LE on duplex. -Apixaban daily -Will need hypercoagulability workup outpatient and workup for cancer outpatient (2) Sepsis: Code(s): A41.9 - Sepsis, unspecified organism Status: Acute Assessment and Plan: UCX & 1/2 BCX w/ klebsiella almost pansensitive except ampicillin. UCX sensitive to current ceftriaxone. 10/25 BCX with no growth. 10/26 BCX with no growth and TTE with no sign of valve vegetations. -Ceftriaxone dose changed to 2g IV daily through 11/01/21 (3) Bacteremia: Code(s): R78.81 - Bacteremia Status: Acute Assessment and Plan: TTE negative. Will continue treatment with ceftriaxone 2g IV daily as per case mangement, insurance approval will take a minimum of 72 hours, so the patient must remain inpatient to get IV ceftriaxone. (4) Pulmonary embolism: Code(s): I26.99 - Other pulmonary embolism without acute cor pulmonale Status: Acute Assessment and Plan: Bilateral venous duplex with no DVT. -Apixaban -As this is unprovoked will need hypercoagulability workup and cancer workup outpatient. (5) Insulin dependent diabetes mellitus: Status: Acute Assessment and Plan: Patient may continue to use her insulin pump basal rate. Initiate sliding scale insulin, Accu-Cheks, and hypoglycemic protocol. (6) Hyperglycemia: Code(s): R73.9 - Hyperglycemia, unspecified Status: Acute Assessment and Plan: Diabetes is poorly controlled with a recent hemoglobin A1c of around 10%. Discussed the importance of getting her diabetes under control, met with prosthodontist/educator within the last 6 months. Glucose has improved with hydration and rapid acting insulin. (7) Chronic kidney disease: Code(s): N18.9 - Chronic kidney disease, unspecified Status: Acute Assessment and Plan: [facility], baseline creatinine 1.1-1.5. At baseline. -Avoid nephrotoxic agents -Renally dose medications (8) Urinary tract infection: Code(s): N39.0 - Urinary tract infection, site not specified Status: Acute Assessment and Plan: Klebsiella sensitive to ceftriaxone. Continue ceftriaxone and will be complete today. -Urinary tract infection treatment has been completed. (9) Elevated LFTs: Code(s): R79.89 - Other specified abnormal findings of blood chemistry Status: Acute Assessment and Plan: Previously informed of mild LFT elevation. Abdominal exam is benign. No inpatient workup indicated. (10) Hypertension: Code(s): I10 - Essential (primary) hypertension Status: Acute Assessment and Plan: Hypertensive. Started hydralazine 5 mg QID yesterday without significant improvement. -Already on carvedilol 25 mg BID, Losartan 100 mg daily and hydrochlorothiazide 25 mg daily -Continue amlodipine 10 mg daily Subjective Date/time seen: 10/28/21 0915 Patient says her throat was scratchy yesterday and says she feels like something is stuck in it. Attributes this to the [facility]. Says her foot pain is much better. Review of Systems Musculoskeletal: Musculoskeletal: Denies arthralgias and Denies joint swelling Exam Narrative: GENERAL: NAD, cooperative HEENT: Normocephalic, atraumatic, anicteric, nares clear, oropharynx moist and freddie
[2021-10-28 16:41] LABS: Glucose Point of Care 143 mg/dl (65-105)
[2021-10-28 21:45] LABS: Glucose Point of Care 174 mg/dl (65-105)
[2021-10-29] VITALS (9 sets, daily range): BP systolic 131–149; BP diastolic 66–69; PULSE 69–81; RESP 15–18; TEMP 35.8–36.8; O2SAT 93–99
[2021-10-29] MEDS: ALBUTEROL SULFATE (*SP) AEROSOL 1 PUFF 2 PUFF INHALATION ×4 (02:55→19:37)
[2021-10-29] MEDS: SALINE LOCK FLUSH 10 ML IV PUSH ×3 (05:57→20:43)
[2021-10-29 07:44] LABS: Glucose Point of Care 136 mg/dl (65-105)
--- NOTE | 2021-10-29 08:16 | PM.IMPN ---
Progress Note: A&P Assessment and Plan (1) Decreased exercise tolerance: Code(s): R68.89 - Other general symptoms and signs Status: Acute Assessment and Plan: Decreased exercise tolerance over the past couple of months. Apnea link for screening tonight as well given daytime somnolence which revealed AHI of 3.6 which is within normal limit She might need stress test to further evaluate her exertion of dyspnea. TSH within range. transthoracic echo shows EF60-65% moderate pHTN and Grade I diastolic dysfunction. VQ scan shows high probability of bilateral PE. HRCT chest w/ mosaic pattern. No DVT in bilateral LE on duplex. -Apixaban daily -Will need hypercoagulability workup outpatient and workup for cancer outpatient (2) Sepsis: Code(s): A41.9 - Sepsis, unspecified organism Status: Acute Assessment and Plan: UCX & 1/2 BCX w/ klebsiella almost pansensitive except ampicillin. UCX sensitive to current ceftriaxone. 10/25 BCX with no growth. 10/26 BCX with no growth and TTE with no sign of valve vegetations. -Ceftriaxone dose changed to 2g IV daily through 11/01/21 (3) Bacteremia: Code(s): R78.81 - Bacteremia Status: Acute Assessment and Plan: TTE negative. Will continue treatment with ceftriaxone 2g IV daily as per case mangement, insurance approval will take a minimum of 72 hours, so the patient must remain inpatient to get IV ceftriaxone. (4) Pulmonary embolism: Code(s): I26.99 - Other pulmonary embolism without acute cor pulmonale Status: Acute Assessment and Plan: Bilateral venous duplex with no DVT. -Apixaban -As this is unprovoked will need hypercoagulability workup and cancer workup outpatient. (5) Insulin dependent diabetes mellitus: Status: Acute Assessment and Plan: Patient may continue to use her insulin pump basal rate. Initiate sliding scale insulin, Accu-Cheks, and hypoglycemic protocol. (6) Hyperglycemia: Code(s): R73.9 - Hyperglycemia, unspecified Status: Acute Assessment and Plan: Diabetes is poorly controlled with a recent hemoglobin A1c of around 10%. Discussed the importance of getting her diabetes under control, met with employment agency manager within the last 6 months. Glucose has improved with hydration and rapid acting insulin. (7) Chronic kidney disease: Code(s): N18.9 - Chronic kidney disease, unspecified Status: Acute Assessment and Plan: [facility], baseline creatinine 1.1-1.5. At baseline. -Avoid nephrotoxic agents -Renally dose medications (8) Urinary tract infection: Code(s): N39.0 - Urinary tract infection, site not specified Status: Acute Assessment and Plan: Klebsiella sensitive to ceftriaxone. Continue ceftriaxone and will be complete today. -Urinary tract infection treatment has been completed. (9) Elevated LFTs: Code(s): R79.89 - Other specified abnormal findings of blood chemistry Status: Acute Assessment and Plan: Previously informed of mild LFT elevation. Abdominal exam is benign. No inpatient workup indicated. (10) Hypertension: Code(s): I10 - Essential (primary) hypertension Status: Acute Assessment and Plan: Hypertensive. Started hydralazine 5 mg QID yesterday without significant improvement. -Already on carvedilol 25 mg BID, Losartan 100 mg daily and hydrochlorothiazide 25 mg daily -Continue amlodipine 10 mg daily Subjective Date/time seen: 10/29/21 08:16 No complaints this morning. Says her foot feels much better. Review of Systems Musculoskeletal: Musculoskeletal: Denies arthralgias and Denies joint swelling Exam Narrative: GENERAL: NAD, cooperative HEENT: Normocephalic, atraumatic, anicteric, nares clear, oropharynx moist and clear NECK: Supple CV: Normal S1, S2, RRR, No MRG RESP: CTAB, Normal work of breathing. EXTREMITI
[2021-10-29] MEDS: cefTRIAXone 2 GM in SODIUM CHLORIDE 0.9% IV 100 ML 200 ML IVPB (09:06)
[2021-10-29] MEDS: CHOLECALCIFEROL 1,000 UNITS TABLET 2000 UNITS PO (09:07)
[2021-10-29] MEDS: ASCORBIC ACID 500 MG TABLET 1000 MG PO (09:08)
[2021-10-29] MEDS: CYANOCOBALAMIN 1,000 MCG TABLET 2000 MCG PO (09:08)
[2021-10-29] MEDS: LOSARTAN POTASSIUM 100 MG TABLET PO (09:08)
[2021-10-29] MEDS: ASPIRIN 81 MG CHEWABLE TABLET PO (09:08)
[2021-10-29] MEDS: amLODIPine BESYLATE 5 MG TABLET 10 MG PO (09:09)
[2021-10-29] MEDS: hydroCHLOROthiazide 25 MG TABLET PO (09:09)
[2021-10-29] MEDS: carvediloL 25 MG TABLET PO ×2 (09:09→20:43)
[2021-10-29] MEDS: APIXABAN 5 MG TABLET 10 MG PO ×2 (09:14→20:43)
[2021-10-29] MEDS: CYANOCOBALAMIN 500 MCG TABLET PO (09:14)
[2021-10-29] MEDS: EZETIMIBE 5 MG TABLET PO (09:14)
[2021-10-29] MEDS: DICLOFENAC SODIUM 1% 100 GM GEL (*BKC) 1 APPLIC TOPICAL ×4 (09:20→20:45)
[2021-10-29 11:46] LABS: Glucose Point of Care 129 mg/dl (65-105)
[2021-10-29 16:41] LABS: Glucose Point of Care 190 mg/dl (65-105)
[2021-10-29 21:40] LABS: Glucose Point of Care 249 mg/dl (65-105)
[2021-10-30 04:19] VITALS: BP 140/70; PULSE 75; RESP 18; TEMP 36.5; O2SAT 98
[2021-10-30] MEDS: ACETAMINOPHEN 325 MG TABLET 650 MG PO ×2 (06:07→17:56)
[2021-10-30] MEDS: SALINE LOCK FLUSH 10 ML IV PUSH ×3 (06:07→20:52)
[2021-10-30 06:30] LABS: Alanine Aminotransferase 116 U/L (6-35); Albumin Level 3.5 g/dL (3.5-5.1); Alkaline Phosphatase 412 U/L (38-126); Anion Gap 5 mmol/L (8-16); Aspartate Amino Transferase 71 U/L (14-36); Bilirubin,Total 0.3 mg/dL (0.2-1.3); Blood Urea Nitrogen 27 mg/dL (7-17); Calcium 8.9 mg/dL (8.4-10.2); Carbon Dioxide 29 mmol/L (22-30); Chloride 103 mmol/L (98-107); Estimated CRCL calculation 50 ml/min; Estimated Glomerular Filt Rate > 60; Glucose 236 mg/dL (65-110); Potassium 4.2 mmol/L (3.4-5.0); Sodium 137 mmol/L (137-145)
[2021-10-30 07:38] LABS: Glucose Point of Care 238 mg/dl (65-105)
--- NOTE | 2021-10-30 08:03 | PM.IMPN ---
Progress Note: A&P Assessment and Plan (1) Decreased exercise tolerance: Code(s): R68.89 - Other general symptoms and signs Status: Acute Assessment and Plan: Decreased exercise tolerance over the past couple of months. Apnea link for screening tonight as well given daytime somnolence which revealed AHI of 3.6 which is within normal limit She might need stress test to further evaluate her exertion of dyspnea. TSH within range. transthoracic echo shows EF60-65% moderate pHTN and Grade I diastolic dysfunction. VQ scan shows high probability of bilateral PE. HRCT chest w/ mosaic pattern. No DVT in bilateral LE on duplex. -Apixaban daily -Will need hypercoagulability workup outpatient and workup for cancer outpatient (2) Sepsis: Code(s): A41.9 - Sepsis, unspecified organism Status: Acute Assessment and Plan: UCX & 1/2 BCX w/ klebsiella almost pansensitive except ampicillin. UCX sensitive to current ceftriaxone. 10/25 BCX with no growth. 10/26 BCX with no growth and TTE with no sign of valve vegetations. -Ceftriaxone dose changed to 2g IV daily through 11/01/21 (3) Bacteremia: Code(s): R78.81 - Bacteremia Status: Acute Assessment and Plan: TTE negative. Will continue treatment with ceftriaxone 2g IV daily as per case mangement, insurance approval will take a minimum of 72 hours, so the patient must remain inpatient to get IV ceftriaxone. (4) Pulmonary embolism: Code(s): I26.99 - Other pulmonary embolism without acute cor pulmonale Status: Acute Assessment and Plan: Bilateral venous duplex with no DVT. -Apixaban -As this is unprovoked will need hypercoagulability workup and cancer workup outpatient. (5) Insulin dependent diabetes mellitus: Status: Acute Assessment and Plan: Patient may continue to use her insulin pump basal rate. Initiate sliding scale insulin, Accu-Cheks, and hypoglycemic protocol. (6) Hyperglycemia: Code(s): R73.9 - Hyperglycemia, unspecified Status: Acute Assessment and Plan: Diabetes is poorly controlled with a recent hemoglobin A1c of around 10%. Discussed the importance of getting her diabetes under control, met with websphere administrator within the last 6 months. Glucose has improved with hydration and rapid acting insulin. (7) Chronic kidney disease: Code(s): N18.9 - Chronic kidney disease, unspecified Status: Acute Assessment and Plan: [facility], baseline creatinine 1.1-1.5. At baseline. -Avoid nephrotoxic agents -Renally dose medications (8) Urinary tract infection: Code(s): N39.0 - Urinary tract infection, site not specified Status: Acute Assessment and Plan: Klebsiella sensitive to ceftriaxone. Continue ceftriaxone and will be complete today. -Urinary tract infection treatment has been completed. (9) Elevated LFTs: Code(s): R79.89 - Other specified abnormal findings of blood chemistry Status: Acute Assessment and Plan: Worsened likely due to ceftriaxone. Will continue to monitor. -LFTs daily (10) Hypertension: Code(s): I10 - Essential (primary) hypertension Status: Acute Assessment and Plan: Hypertensive. Started hydralazine 5 mg QID yesterday without significant improvement. -Already on carvedilol 25 mg BID, Losartan 100 mg daily and hydrochlorothiazide 25 mg daily -Continue amlodipine 10 mg daily (11) Gout: Code(s): M10.9 - Gout, unspecified Status: Acute Assessment and Plan: Treated with colchicine a few days ago with significant improvement and resolution of edema and erythema. Now having more pain. -Colchicine 0.6 mg daily x 48hrs Subjective Date/time seen: 10/30/21 08:03 Patient says her foot pain has returned. Says she had gout years ago and went to the ED. Said she was given an injection that made her feel better.
[2021-10-30] MEDS: ALBUTEROL SULFATE (*SP) AEROSOL 1 PUFF 2 PUFF INHALATION ×3 (09:50→20:20)
[2021-10-30] MEDS: cefTRIAXone 2 GM in SODIUM CHLORIDE 0.9% IV 100 ML 200 ML IVPB (10:11)
[2021-10-30] MEDS: APIXABAN 5 MG TABLET 10 MG PO ×2 (10:12→20:49)
[2021-10-30] MEDS: DICLOFENAC SODIUM 1% 100 GM GEL (*BKC) 1 APPLIC TOPICAL ×4 (10:12→20:51)
[2021-10-30] MEDS: amLODIPine BESYLATE 5 MG TABLET 10 MG PO (10:13)
[2021-10-30] MEDS: CHOLECALCIFEROL 1,000 UNITS TABLET 2000 UNITS PO (10:13)
[2021-10-30] MEDS: CYANOCOBALAMIN 1,000 MCG TABLET 2000 MCG PO (10:13)
[2021-10-30] MEDS: ASCORBIC ACID 500 MG TABLET 1000 MG PO (10:13)
[2021-10-30 10:14] VITALS: PULSE 72
[2021-10-30] MEDS: EZETIMIBE 5 MG TABLET PO (10:14)
[2021-10-30] MEDS: carvediloL 25 MG TABLET PO ×2 (10:14→20:50)
[2021-10-30] MEDS: ASPIRIN 81 MG CHEWABLE TABLET PO (10:14)
[2021-10-30] MEDS: CYANOCOBALAMIN 500 MCG TABLET PO (10:15)
[2021-10-30] MEDS: hydroCHLOROthiazide 25 MG TABLET PO (10:15)
[2021-10-30] MEDS: LOSARTAN POTASSIUM 100 MG TABLET PO (10:15)
[2021-10-30] MEDS: COLCHICINE 0.3 MG TABLET PO (10:15)
[2021-10-30 11:41] LABS: Glucose Point of Care 267 mg/dl (65-105)
[2021-10-30 15:00] VITALS: BP 136/60; PULSE 65; RESP 16; TEMP 35.5; O2SAT 98
[2021-10-30 16:37] LABS: Glucose Point of Care 176 mg/dl (65-105)
[2021-10-30] MEDS: traMADol HCL (*CRX) 25 MG TABLET PO (20:49)
[2021-10-30 20:50] VITALS: PULSE 85
[2021-10-30 22:00] VITALS: BP 154/78; PULSE 80; RESP 16; TEMP 36.6; O2SAT 100
[2021-10-30 22:24] LABS: Glucose Point of Care 158 mg/dl (65-105)
[2021-10-31] MEDS: LACTATED RINGERS 1,000 ML 100 ML IV CONT (02:12)
[2021-10-31] MEDS: ACETAMINOPHEN 325 MG TABLET 650 MG PO ×2 (02:37→08:26)
[2021-10-31] MEDS: traMADol HCL (*CRX) 25 MG TABLET PO ×2 (02:37→08:26)
[2021-10-31] MEDS: SALINE LOCK FLUSH 10 ML IV PUSH ×2 (05:54→14:24)
[2021-10-31 06:00] VITALS: BP 144/87; PULSE 69; RESP 21; TEMP 36.6; O2SAT 100
[2021-10-31 06:39] LABS: Alanine Aminotransferase 84 U/L (6-35); Albumin Level 3.5 g/dL (3.5-5.1); Alkaline Phosphatase 344 U/L (38-126); Aspartate Amino Transferase 62 U/L (14-36); Bilirubin,Total 0.1 mg/dL (0.2-1.3)
--- NOTE | 2021-10-31 08:05 | PM.DS ---
DS: Admitting Diagnosis Discharge Date 10/31/21 Admitting Diagnosis Urinary Tract Infection DS: Discharge Diagnosis Discharge Diagnosis (1) Decreased exercise tolerance: Code(s): R68.89 - Other general symptoms and signs Status: Acute Assessment and Plan: Decreased exercise tolerance over the past couple of months. Apnea link for screening tonight as well given daytime somnolence which revealed AHI of 3.6 which is within normal limit She might need stress test to further evaluate her exertion of dyspnea.? TSH within range.? transthoracic echo shows EF60-65% moderate pHTN and Grade I diastolic dysfunction.? VQ scan shows high probability of bilateral PE. HRCT chest w/ mosaic pattern.? No DVT in bilateral LE on duplex.? -Apixaban daily ? -Will need hypercoagulability workup outpatient and workup for cancer outpatient (2) Sepsis: Code(s): A41.9 - Sepsis, unspecified organism Status: Acute Assessment and Plan: UCX & 1/2 BCX w/ klebsiella almost pansensitive except ampicillin.? UCX sensitive to current ceftriaxone.? 10/25 BCX with no growth.? 10/26 BCX with no growth and TTE with no sign of valve vegetations. Plan was initially to treat with intravenous antibiotics until 11/01 but patient developed transaminitis due to ceftriaxone, so ceftriaxone was discontinued and patient was given augmentin to complete treatment on 11/03/21. -Augmentin 875 mg BID (3) Bacteremia: Code(s): R78.81 - Bacteremia Status: Acute Assessment and Plan: TTE negative.?Patient treated with ceftriaxone 2g IV daily until developing transaminitis, so ceftriaxone was discontinued. Patient discharged with augmentin to complete treatment on 11/03/21. (4) Pulmonary embolism: Code(s): I26.99 - Other pulmonary embolism without acute cor pulmonale Status: Acute Assessment and Plan: VQ scan noted bilateral PEs. Was unable to get CTA due to patient CKD. Bilateral venous duplex with no DVT. -Apixaban -As this is unprovoked will need hypercoagulability workup and cancer workup outpatient. (5) Insulin dependent diabetes mellitus: Status: Acute Assessment and Plan: Uncontrolled. Needs insulin adjustment and would benefit from continuous glucose monitor in addition to her insulin pump. (6) Hyperglycemia: Code(s): R73.9 - Hyperglycemia, unspecified Status: Acute Assessment and Plan: See above. (7) Chronic kidney disease: Code(s): N18.9 - Chronic kidney disease, unspecified Status: Acute Assessment and Plan: Stable. Creatinine at baseline. (8) Urinary tract infection: Code(s): N39.0 - Urinary tract infection, site not specified Status: Acute Assessment and Plan: This was adequately treated with three days of ceftriaxone. (9) Elevated LFTs: Code(s): R79.89 - Other specified abnormal findings of blood chemistry Status: Acute Assessment and Plan: Peaked on 10/30 and declined with discontinuation of ceftriaxone. Patient will need to recheck liver function test one week from discharge with primary care physician. (10) Hypertension: Code(s): I10 - Essential (primary) hypertension Status: Acute Assessment and Plan: Uncontrolled on admission. Amlodipine was added and all home medications were continued. (11) Gout: Code(s): M10.9 - Gout, unspecified Status: Acute Assessment and Plan: Had MRI of foot showing gout. Gave colchicine, which patient initially reported improvement of pain. On day of discharge, patient reported the colchicine was no longer helping. Prednisone 40 mg po once was given. Patient will need to follow up with PCP to start allopurinol. DS: Summary Hospital Course Reason for hospitalization: Urinary Tract Infection Hospital Course: 61F with a past medical history of DM w/ insulin pump, hypertension, hyperlipidemia, gout who presented to the ED fo
[2021-10-31] MEDS: CYANOCOBALAMIN 500 MCG TABLET PO (08:20)
[2021-10-31] MEDS: APIXABAN 5 MG TABLET 10 MG PO (08:21)
[2021-10-31] MEDS: COLCHICINE 0.3 MG TABLET PO (08:21)
[2021-10-31] MEDS: amLODIPine BESYLATE 5 MG TABLET 10 MG PO (08:21)
[2021-10-31] MEDS: LOSARTAN POTASSIUM 100 MG TABLET PO (08:21)
[2021-10-31] MEDS: CYANOCOBALAMIN 1,000 MCG TABLET 2000 MCG PO (08:21)
[2021-10-31] MEDS: ASCORBIC ACID 500 MG TABLET 1000 MG PO (08:21)
[2021-10-31] MEDS: ASPIRIN 81 MG CHEWABLE TABLET PO (08:21)
[2021-10-31] MEDS: hydroCHLOROthiazide 25 MG TABLET PO (08:21)
[2021-10-31] MEDS: EZETIMIBE 5 MG TABLET PO (08:21)
[2021-10-31] MEDS: CHOLECALCIFEROL 1,000 UNITS TABLET 2000 UNITS PO (08:21)
[2021-10-31] MEDS: carvediloL 25 MG TABLET PO (08:21)
[2021-10-31] MEDS: DICLOFENAC SODIUM 1% 100 GM GEL (*BKC) 1 APPLIC TOPICAL ×3 (08:22→17:24)
[2021-10-31] MEDS: predniSONE 20 MG TABLET 40 MG PO (09:48)
[2021-10-31] MEDS: AMOXICILLIN/CLAVULANATE K 875-125 MG TAB 1 TABLET PO (09:48)
--- NOTE | 2021-10-31 12:18 | PCNFU ---
Nutrition Follow-Up Complete: Inadequate oral intake related to UTI as evidence by decreased appetite. Goal: Maintain an 50% or more intake of meals. - Pt has met current goal. Pt current nutrition is carb consistent diet. Last recorded weight is stable. Bowel Motility: +BM (10/30) Meds Noted: Vit D, B12, C. Dextrose, Glucose, Zetia Skin: WNL Additional Notes: Discussed current appetite which pt reports as good and complemented the food. Pt is consuming 100% meals. Pt is consuming Glucerna BID with 220 kcal and 10g protein per serving. Agree with current diet order. Monitor w/t changes and oral intake within 7 days.
--- NOTE | 2021-10-31 13:49 | PCNSR ---
On 10/31/21, the student, David Martinez, provided care and completed [facility] documentation on this patient. I have reviewed the student's documentation and agree with the findings.
[2021-10-31 14:00] VITALS: BP 144/65; PULSE 68; RESP 18; TEMP 36.8; O2SAT 97
--- NOTE | 2021-11-10 15:08 | PC.NURSE ---
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 Return to Work Order (at time of discharge) states Return to Work tomorrow. However, patient was having severe pain which was further complicated due to an acute gout flare up the day following discharge. She was able to follow up with PCP on the second day after DC, who ordered further rest for two more weeks or so. However, because the initial discharge return to work order stated tomorrow, her inside account representative has disputed the legitimacy of her stay home time. Discharging Physician Dr Winters is not available today. I spoke with Dr Vidales today to amend the order to extend the discharge return to work order to defer to PCP outpatient.
== END 2021-10-31 18:25 | disposition home or self-care (01) | DRG 871 ==
LOC: ANHED 15:05 → ANH3MED 15:07
PROVIDERS: Family Medicine; Internal Medicine Cardiovascular Disease; Admitting Provider Internal Medicine; Emergency Provider Emergency Medicine; Visit Provider Family Medicine
PROC: B24BZZ4 Ultrasonography of Heart with Aorta, Transesophageal (ICD-10-PCS; CPT 93312; principal; 2021-10-26 10:00)
DX: A41.9 Sepsis, unspecified organism (principal); I26.99 Other pulmonary embolism without acute cor pulmonale; N39.0 Urinary tract infection, site not specified; B96.1 Klebsiella pneumoniae [K. pneumoniae] as the cause of diseases classified elsewhere; Z20.822 Contact with and (suspected) exposure to COVID-19; E11.22 Type 2 diabetes mellitus with diabetic chronic kidney disease; E11.21 Type 2 diabetes mellitus with diabetic nephropathy; E11.40 Type 2 diabetes mellitus with diabetic neuropathy, unspecified; E11.319 Type 2 diabetes mellitus with unspecified diabetic retinopathy without macular edema; E11.65 Type 2 diabetes mellitus with hyperglycemia; I12.9 Hypertensive chronic kidney disease with stage 1 through stage 4 chronic kidney disease, or unspecified chronic kidney disease; N18.9 Chronic kidney disease, unspecified; M10.9 Gout, unspecified; E78.5 Hyperlipidemia, unspecified; K21.9 Gastro-esophageal reflux disease without esophagitis
CPT/HCPCS: 36415; 36569; 70450; 71045; 71250; 73630; 73718; 74176; 78580; 80048; 80053; 80076; 81001; 82948; 83605; 83735; 83880; 84443; 85014; 85018; 85025; 85380; 85652; 86140; 87040; 87077; 87086; 87186; 93005; 93306; 93312; 93320; 93325; 93970; 94640; 94762; 96361; 96365; 96376; 99285; A9270; A9540; C1751; C9803; G0378; J0696; J1650; J1815; J2250; J3010; J7030; J7040; J7120; J7512; U0003; U0005

== ENCOUNTER 2021-11-16 22:04 | Emergency (ER) | payer BC, OTHER, SELFPAY ==
--- NOTE | ~2021-11-16 | XR_ITS ---
EXAMINATION: XR chest 2V DATE: 11/17/2021 00:29 INDICATION: Weakness. Recent hospitalization for blood infection. TECHNIQUE: PA and lateral views of the chest were obtained. COMPARISON: Chest radiograph dated 10/23/2021 FINDINGS: Small calcified nodule near the left costophrenic angle and larger calcification in the liver, both c onsistent with old granulomatous disease. No other airspace opacities, pulmonary edema, pleural effus ion or pneumothorax. The cardiomediastinal silhouette is normal. Mild midthoracic spondylosis. IMPRESSION: 1. No acute cardiopulmonary disease. Reviewed, dictated and finalized at location A.
[2021-11-16 22:13] VITALS: BP 130/65; PULSE 79; RESP 18; TEMP 36.9; O2SAT 98
[2021-11-16 23:23] VITALS: BP 137/60; PULSE 68; RESP 17; O2SAT 96
--- NOTE | 2021-11-16 23:36 | ED.SKABFB ---
HPI - Skin/Abscess/Foreign Bdy General Chief complaint: Skin/Abscess/Foreign Body Stated complaint: rash, flank pain Time Seen by Provider: 11/16/21 23:36 History of Present Illness HPI narrative: The patient is a 61-year-old female with a past medical history of insulin-dependent diabetes, hypertension, hyperlipidemia, gout, recent mission to this hospital October 23 through October 27 for sepsis, urinary tract infection with blood cultures positive for Klebsiella pneumonia, ultimately discharged home after somewhat complex hospital course that was noted for bilateral PEs, initiated on anticoagulation. Patient states she developed gout in her right ankle for which she was seen by her primary care physician at the [facility] and initiated on steroids, anti-inflammatories. Patient denies fever, chills but reports fatigue, weakness, dyspnea with exertion. She has been compliant with her anticoagulation without missed doses. She denies current chest pain but states she has had intermittent chest pain especially with exertion. Patient reports bilateral lower extremity edema which make it difficult for her to walk. She denies calf pain or redness. Patient states that the chest pain occurs randomly is described as sharp in nature without radiation to the back, shoulder, jaw or neck. Not associated with nausea, vomiting, palpitations or diaphoresis. Patient states that she presented to the ER tonight when she developed a rash along her right flank wrapping around to her right abdomen. Reports it is tingling in nature, no blisters. No known history of shingles. Related Data Home Medications Medication Instructions Recorded Confirmed ascorbic acid (vitamin C) 1,000 mg PO DAILY 10/23/21 10/23/21 aspirin 81 mg chewable tablet 81 mg PO DAILY 10/23/21 10/23/21 carvedilol 25 mg tablet 25 mg PO BID 10/23/21 10/23/21 cholecalciferol (vitamin D3) 50 50 mcg PO DAILY 10/23/21 10/23/21 mcg (2,000 unit) tablet cranberry extract 500 mg PO DAILY 10/23/21 10/23/21 ezetimibe 5 mg PO DAILY 10/23/21 10/23/21 losartan-hydrochlorothiazide 25 - 100 mg PO DAILY 10/23/21 10/23/21 mecobalamin (vitamin B12) 5,000 2,500 mcg PO DAILY 10/23/21 10/23/21 mcg disintegrating tablet sour lopez extract 1,000 mg 1,200 mg PO DAILY 10/23/21 10/23/21 capsule (Tart Lopez Extract) Allergies Allergy/AdvReac Type Severity Reaction Status Date / Time No Known Allergies Allergy Unverified 06/28/14 08:42 Review of Systems Review of Systems: CONSTITUTIONAL: Denies fever, chills, or sweats. EYES: Denies visual changes, redness, or discharge. ENT: Denies rhinorrhea, congestion, sore throat, or otalgia. CARDIOVASCULAR: Denies current chest pain, palpitations, does report bilateral lower extremity edema RESPIRATORY: Denies cough or dyspnea. GASTROINTESTINAL: Denies abdominal pain, nausea, vomiting, or diarrhea. GENITOURINARY: Denies dysuria or hematuria. SKIN: Reports rash from right flank to right abdomen MUSCULOSKELETAL: Denies back pain, joint pain, or myalgia. NEUROLOGIC: Denies headache, numbness, reports generalized weakness PMFSH Past Medical History Medical History Chronic kidney disease Dyslipidemia Gastroesophageal reflux disease Gout Hypertension Insulin dependent diabetes mellitus With retinopathy, nephropathy, and neuropathy. Surgical History Surgical History No history of previous surgery Family History Family History Mother Breast cancer Alzheimer's disease Father Diabetes mellitus Grandparent Acute myocardial infarction Social History Social History Social History: Surrogate decision maker: Jennifer Zepeda, significant other. Code status: Full code. Smoking status: Never smoker Alcohol intake: current Drinks per week: 1 (Spa
[2021-11-16 23:46] VITALS: BP 139/75; PULSE 67; RESP 19; O2SAT 97
[2021-11-17] VITALS (27 sets, daily range): BP systolic 118–150; BP diastolic 48–74; PULSE 65–77; RESP 12–24; O2SAT 91–98
--- NOTE | 2021-11-17 00:06 | ECG_ITS ---
Measurements Intervals [place] Rate: 64 P: 54 [place]: 146 QRS: 16 QRSD: 94 T: 46 QT: 403 QTc: 416 Interpretive Statements SINUS RHYTHM NORMAL ECG COMPARED TO ECG 10/23/2021 12:10:44 NO SIGNIFICANT CHANGES Electronically Signed On 11-17-2021 14:36:38 CDT by Henry Maki M.D.
[2021-11-17] MEDS: ACYCLOVIR SODIUM IVPB 800 MG in DEXTROSE 5% IN WATER 250 ML 266 MG IVPB (00:39)
[2021-11-17] MEDS: predniSONE 20 MG TABLET 60 MG PO (00:40)
[2021-11-17 00:46] LABS: Basophils Absolute Auto 0.1 K/mm3 (0.0-0.1); Basophils Percent Auto 0.7 % (0.2-1.2); Eosinophils Absolute Auto 0.4 K/mm3 (0-0.3); Hematocrit 31.5 % (37.0-47.0); Hemoglobin 10.1 g/dL (12.0-15.0); Immature Granulocyte Absolute 0.01 K/mm3 (0.00-0.031); Immature Granulocyte Percent A 0.1 % (0-0.5); Lymphocytes Absolute Auto 1.13 K/mm3 (0.9-3.2); Lymphocytes Percent Auto 12.5 % (18.3-44.2); Mean Corpuscular HGB Conc 32.1 g/dl (32-36); Mean Corpuscular Hemoglobin 30.3 pg (26-34); Mean Corpuscular Volume 94.6 fl (80-100); Mean Platelet Volume 9.5 fl (7.4-10.4); Monocytes Absolute Auto 0.7 K/mm3 (0.1-0.6); Monocytes Percent Auto 8.2 % (2.6-8.5); Neutrophils Absolute Auto 6.8 K/mm3 (1.3-6.7); Neutrophils Percent Auto 74.5 % (45.5-73.1); Platelet Count Result 291 k/mm3 (150-375); Red Blood Count 3.33 M/mm3 (4.2-5.4); Red Cell Distribution Width 13.9 % (11.5-14.5); White Blood Count 9.1 K/mm3 (4.5-10.0)
[2021-11-17 00:47] LABS: Appearance Urine Clear (Clear); Bilirubin Urine Negative (Negative); Blood Urine Negative (Negative); Color Urine Yellow (Yellow); Glucose Urine UA Negative (Negative); Ketones Urine Negative (Negative); Leukocyte Esterase Ur Trace LEU/UL (Negative); Nitrate Urine Negative (Negative); Protein Urine 3+ mg/dL (Negative); Specific Grav Ur 1.025 (1.001-1.035); Urobilinogen Urine 0.2 mg/dL (<2.0)
[2021-11-17 00:51] LABS: Bacteria Urine Trace /hpf; Mucus Urine Rare /lpf; RBC Urine 0-2 /hpf (0-2); Squamous Epithelial Cell Urine Rare /hpf (Few)
[2021-11-17 00:52] LABS: Add Urine Microscopic? YES
[2021-11-17 00:56] LABS: Alanine Aminotransferase 95 U/L (6-35); Albumin Level 3.8 g/dL (3.5-5.1); Alkaline Phosphatase 222 U/L (38-126); Anion Gap 5 mmol/L (8-16); Aspartate Amino Transferase 62 U/L (14-36); Bilirubin,Total 0.3 mg/dL (0.2-1.3); Blood Urea Nitrogen 27 mg/dL (7-17); Calcium 8.8 mg/dL (8.4-10.2); Carbon Dioxide 27 mmol/L (22-30); Chloride 107 mmol/L (98-107); Estimated Glomerular Filt Rate 46; Glucose 141 mg/dL (65-110); Potassium 4.1 mmol/L (3.4-5.0); Sodium 139 mmol/L (137-145)
[2021-11-17 00:59] LABS: INR 1.2; Prothrombin Time 14.9 Seconds (11.1-14.7)
[2021-11-17 01:00] LABS: Partial Thromboplastin Time 34.9 SECONDS (22.3-36.8)
[2021-11-17 01:02] LABS: D Dimer 0.29 ug/mL (<0.48)
[2021-11-17 03:51] LABS: NT Pro B Type Natriuretic Pept 107 pg/mL (5-100); Troponin I < 0.012 ng/mL (0.000-0.034)
[2021-11-17 03:53] LABS: SARS-CoV-2 RNA PCR Negative
== END 2021-11-17 04:37 | disposition home or self-care (01) ==
PROVIDERS: Emergency Provider Emergency Medicine
DX: B02.9 Zoster without complications (principal); R53.83 Other fatigue; Z20.822 Contact with and (suspected) exposure to COVID-19; I12.9 Hypertensive chronic kidney disease with stage 1 through stage 4 chronic kidney disease, or unspecified chronic kidney disease; E11.22 Type 2 diabetes mellitus with diabetic chronic kidney disease; N18.9 Chronic kidney disease, unspecified; M10.9 Gout, unspecified; K21.9 Gastro-esophageal reflux disease without esophagitis; E78.5 Hyperlipidemia, unspecified; Z86.711 Personal history of pulmonary embolism; Z87.442 Personal history of urinary calculi; Z79.01 Long term (current) use of anticoagulants; Z79.82 Long term (current) use of aspirin
CPT/HCPCS: 36415; 71046; 80053; 81001; 83880; 84443; 84484; 85025; 85380; 85610; 85730; 87086; 87088; 93005; 96365; 99284; C9803; J0133; J7060; J7512; U0003; U0005